=== PATIENT | female | born 1925 ===

== ENCOUNTER 2017-07-14 18:22 | Inpatient (IN) | payer MEDICARE, OTHER ==
--- NOTE | 2017-07-14 19:28 | C.PDOC ---
History Of Present Illness 89yo female, with history of hypertension, pacemaker and home O2, presents to ED with complaints of back pain, worsening over the past 2 days. She denies any falls or trauma. Patient states she took Tylenol yesterday with mild relief and states the pain was so severe today, she was unable to walk. She denies any weakness, numbness, bowel or bladder dysfunction, abdominal pain or urinary symptoms. She denies any loss of strength in her lower extremities. She offers no other medical complaints. Chief Complaint (Nursing): Back Pain History Per: Patient History/Exam Limitations: no limitations Onset/Duration Of Symptoms: Days, Worse Since (2 days) Current Symptoms Are (Timing): Still Present Quality Of Discomfort: "Pain" Severity: Moderate Previous Symptoms: Back Pain Associated Symptoms: denies: Incontinence, New Weakness, New Numbness Past Medical History Reviewed: Historical Data, Nursing Documentation, Vital Signs Vital Signs: Last Vital Signs Temp 98.3 F 07/14/17 23:50 Pulse 73 07/15/17 00:15 Resp 20 07/15/17 00:15 BP 148/89 07/14/17 23:50 Pulse Ox 2 L 07/15/17 00:15 - Medical History PMH: HTN, Hypercholesterolemia Surgical History: Pacemaker Family History: States: No Known Family Hx - Social History Hx Alcohol Use: No Hx Substance Use: No - Immunization History Hx Tetanus Toxoid Vaccination: Yes Hx Pneumococcal Vaccination: No Review Of Systems Except As Marked, All Systems Reviewed And Found Negative. Constitutional: Negative for: Fever, Chills Gastrointestinal: Negative for: Abdominal Pain Genitourinary: Negative for: Dysuria, Frequency, Incontinence, Hematuria Musculoskeletal: Positive for: Back Pain Neurological: Negative for: Weakness, Numbness Physical Exam - Physical Exam Appears: Non-toxic, No Acute Distress Skin: Normal Color, Warm, Dry Head: Atraumatic, Normacephalic Eye(s): bilateral: Normal Inspection, PERRL, EOMI Oral Mucosa: Moist Neck: Normal ROM, Supple Chest: Symmetrical, Other (pacemaker left anterior chest) Cardiovascular: Rhythm Regular Respiratory: Normal Breath Sounds Gastrointestinal/Abdominal: Normal Exam, Soft, No Tenderness Back: No CVA Tenderness, No Vertebral Tenderness, Paraspinal Tenderness ( diffuse bilateral paralumbar tenderness) Extremity: Normal ROM (5/5 motor strength bilateral lower extremities), No Deformity Pulses: Left Carotid: Normal, Right Carotid: Normal, Left Brachial: Normal, Right Brachial: Normal, Left Radial: Normal, Right Radial: Normal, Left Femoral : Normal, Right Femoral: Normal, Left Dorsalis Pedis: Normal, Right Dorsalis Pedis: Normal Neurological/Psych: Oriented x3, Normal Speech, Normal Cognition ED Course And Treatment - Laboratory Results Result Diagrams: 07/14/17 19:44 07/14/17 19:44 Lab Interpretation: Normal O2 Sat by Pulse Oximetry: 98 (RA) Pulse Ox Interpretation: Normal - Other Rad Lumbar spine X-Ray: Interpreted by Me Progress Note: L/S spine films reveal [id number]-judiporibsh fracture Medical Decision Making Medical Decision Making: Impression: Lower back pain Plan: -- XR Lumbar spine -- Urinalysis -- CBC -- CMP -- Morphine 4mg IV Disposition - Disposition Disposition: HOSPITALIZED Disposition Time: 20:46 Condition: FAIR - Clinical Impression Clinical Impression: Lumbar compression fracture - Scribe Statement The provider has reviewed the documentation as recorded by the Scribe (Val Drake) Provider Attestation: Provider Attestation: All medical record entries made by the Scribe were at my direction and personally dictated by me. I have reviewed the chart and agree that the record accurately reflects my personal performance of the history, physical exam, medical decision making, and the department course for this patient. I have also personally directed, reviewed, and agree with the discharge instructions and disposition.
[2017-07-14] MEDS ORDERED: Morphine 4 MG/ML VIAL IV ONE (19:29)
--- NOTE | 2017-07-14 19:30 | C.PDOC ---
Chief Complaint (Nursing): Back Pain Past Medical History Vital Signs: Last Vital Signs Temp 97.9 F 07/14/17 18:40 Pulse 69 07/14/17 18:40 Resp 20 07/14/17 18:40 BP 115/59 L 07/14/17 18:40 Pulse Ox 98 07/14/17 18:40 - Medical History PMH: HTN, Hypercholesterolemia Surgical History: Pacemaker - Social History Hx Alcohol Use: No Hx Substance Use: No - Immunization History Hx Tetanus Toxoid Vaccination: Yes Hx Pneumococcal Vaccination: No ED Course And Treatment O2 Sat by Pulse Oximetry: 98 Disposition - Disposition
[2017-07-14] MEDS ORDERED: Morphine 4 MG/ML VIAL ONE (19:34)
[2017-07-14 19:47] LABS: BASO % 0.4 % (0.0-2.0); EOS # 0.1 K/uL (0.0-0.7); EOS % 1.6 % (0.0-4.0); HEMOGLOBIN 12.2 g/dL (11.0-16.0); LYMPH # 1.5 K/uL (1.0-4.3); LYMPH % 24.5 % (20.0-40.0); MEAN CELL VOLUME 92.2 fL (81.0-99.0); MEAN CORPUSCULAR HEMOGLOBIN 30.7 pg (27.0-31.0); MEAN CORPUSCULAR HGB CONC 33.3 g/dL (33.0-37.0); MEAN PLATELET VOLUME 8.6 fL (7.2-11.7); MONO # 0.7 K/uL (0.0-0.8); NEUT # 3.9 K/uL (1.8-7.0); NEUT % 62.5 % (50.0-75.0); RBC 3.97 Mil/uL (3.80-5.20); RED CELL DISTRIBUTION WIDTH 13.6 % (11.5-14.5); WHITE BLOOD COUNT 6.2 K/uL (4.8-10.8)
[2017-07-14 19:51] LABS: SQUAMOUS EPITHIAL 2 /hpf (0-5); URINE BILIRUBIN NEGATIVE (NEGATIVE); URINE BLOOD NEGATIVE (NEGATIVE); URINE CLARITY Clear (Clear); URINE COLOR Straw (YELLOW); URINE GLUCOSE (UA) NORMAL (Normal); URINE LEUKOCYTE ESTERASE TRACE Leu/uL (Negative); URINE PROTEIN NEGATIVE (NEGATIVE); URINE UROBILINOGEN NORMAL mg/dL (0.2-1.0)
[2017-07-14 20:01] LABS: ALBUMIN 3.4 g/dL (3.5-5.0); ALT/SGPT 90 U/L (9-52); AST/SGOT 69 U/L (14-36); BLOOD UREA NITROGEN 19 mg/dL (7-17); CALCIUM 9.1 mg/dl (8.6-10.4); GFR AFRICAN-AMERICAN > 60; GFR NON-AFRICAN AMERICAN 52
--- NOTE | 2017-07-14 21:25 | CP.PCM.HP ---
History of Present Illness - History of Present Illness History of Present Illness: Chief complaint: Weakness History present illness: 88-year-old female with history of atrial fibrillation, congestive heart failure , hypertension, pacemaker came to ER with pain in the back. Tuesday pt son called me and told me that she started to have more pain and unable to walk even with WRITING TUTOR help and walker. Her pain got more worse and unable to stand today and family brought her to ED. There is no fall or no injury recently. NO recent cough. Pt is very anxious and c/o insomina with pain. She also stopped taking her lasix because she was not able to get up and go to bathroom. Patient recently had echocardiogram, and also evaluated for pacemaker by cnc machine programmer . Some urinary incontinence noted. Patient has a homemaker 4 days per week, 2 hours per day. She sleeping okay, patient is using oxygen almost 24 hours. PMH: COPD, atrial fib, CHF, HTN, pacemaker, osteoporosis, anxiety allergy: NKDA FH: son: anxiety and hypercholesterolemia father and mother natural cause Surgery: Appendectomy, Pacemaker PH: Smoking:Quit greater than 40 years ago ago. 2ppd Alcohol: Alcohol Status: Nondrinker. Caffeine intake:Admits to taking caffeinated beverages. Review of systems: Denies any headache, generalized body pain, lower leg pain noted, sometimes swelling in the legs noted, denies any abdominal swelling c/o pain over the lower back noted and tenderness On examination: HEENT PERRLA, neck supple No thyromegaly was noted and no cervical adenopathy noted Chest bilateral good air entry, no wheezing or rales noted CVS regular heart sound, no murmur Abdomen soft and no organomegaly Extremities pedal edema noted bilateral pedal pulses are good. REGISTERED NURSE HH CASE MANAGER alert awake oriented x3 no functional neurological deficit tenderness over the lower lumbar region noted able to move the lower extremities but weak labs noted T12 vertibral compression fracture noted high INR Assessment/Plan: 89-year-old female with history of congestive heart failure, systolic in nature , stable at this time, on medications as well as home oxygen. Atrial fibrillation on medications. Anticoagulation. Being evaluated by cnc machine programmer. Hypercholesterolemia, COPD, hypertension, pacemaker. admitted with acute vertibral compression fracture with weakness physical theraphy pain managment neuro eval PPI will f/u Present on Admission - Present on Admission Any Indicators Present on Admission: No History of DVT/PE: No History of Uncontrolled Diabetes: No Urinary Catheter: No Decubitus Ulcer Present: No Past Patient History - Past Social History Smoking Status: Never Smoked - CARDIAC Hx Hypercholesterolemia: Yes Hx Hypertension: Yes Hx Pacemaker: Yes - PSYCHIATRIC Hx Substance Use: No - SURGICAL HISTORY Other/Comment: pacemaker Meds Allergies/Adverse Reactions: Allergies Allergy/AdvReac Type Severity Reaction Status Date / Time No Known Allergies Allergy Verified 07/14/17 18:43 Results - Vital Signs Recent Vital Signs: Last Vital Signs Temp 97.9 F 07/14/17 18:40 Pulse 69 07/14/17 18:40 Resp 20 07/14/17 18:40 BP 115/59 L 07/14/17 18:40 Pulse Ox 98 07/14/17 20:46 - Labs Result Diagrams: 07/14/17 19:44 07/14/17 19:44 Labs: Laboratory Results - last 24 hr 07/14/17 07/14/17 07/14/17 19:44 19:44 19:44 WBC 6.2 RBC 3.97 Hgb 12.2 Hct 36.6 MCV 92.2 MCH 30.7 MCHC 33.3 RDW 13.6 Plt Count 274 MPV 8.6 Neut % (Auto) 62.5 Lymph % (Auto) 24.5 Baker % (Auto) 11.0 H Eos % (Auto) 1.6 Baso % (Auto) 0.4 Neut # (Auto) 3.9 Lymph # (Auto) 1.5 Baker # (Auto) 0.7 Eos # (Auto) 0.1 Baso # (Auto) 0.0 Sodium 134 Potassium 4.6 Chloride 98 Carbon Dioxide 26 Anion Gap 15 BUN 19 H Creatinine 1.0 Est GFR ( Amer) > 60 Est GFR (Non-Af Amer) 52 Random Glucose 89 Calcium 9.1 Total Bilirubin 0.8 AST 69 H ALT 90 H Alkaline Phosphatase 303 H Total Protein 6.8 Albumin 3.4 L Globulin 3.5 Albumin/Globulin Ratio 1.0 Urine Color Straw Urine Clarity Clear Urine pH 5.0 Ur Specific [place] 1.008 Urine Protein Negative Urine Glucose (UA) Normal Urine Ketones Negative Urine Blood Negative Urine Nitrate Negative Urine Bilirubin Negative Urine Urobilinogen Normal Ur Leukocyte Esterase Trace Urine WBC (Auto) 5 Urine RBC (Auto) < 1 Ur Squamous Epith Cells 2
[2017-07-14 21:45] LABS: INR 6.4
[2017-07-14 21:50] LABS: PROTHROMBIN TIME 78.7 SECONDS (9.7-12.2)
--- NOTE | 2017-07-15 07:06 | CP.PCM.CON ---
History of Present Illness - History of Present Illness History of Present Illness: CONSULT DICTATED R/O MYELOPATHY FROM T12 NO SENSORY LEVEL, BLADDER NOT DISTENDED LEFT PLANTAR UPGOING CAT THX AND L/S SPINE, BONE SCAN AND BLADDER SONO INR HIGH ??? RETROPERITONEAL BLEED. BED REST Past Patient History - Past Medical History & Family History Past Medical History?: Yes - Past Social History Smoking Status: Former Smoker - CARDIAC Hx Hypercholesterolemia: Yes Hx Hypertension: Yes Hx Pacemaker: Yes - PULMONARY Hx Respiratory Disorders: Yes Hx Chronic Obstructive Pulmonary Disease (COPD): Yes - NEUROLOGICAL Hx Neurological Disorder: No - HEENT Hx HEENT Problems: Yes Hx Cataracts: Yes (Surgery) - RENAL Hx Chronic Kidney Disease: No - ENDOCRINE/METABOLIC Hx Endocrine Disorders: No - HEMATOLOGICAL/ONCOLOGICAL Hx Blood Disorders: No - INTEGUMENTARY Hx Dermatological Problems: No - MUSCULOSKELETAL/RHEUMATOLOGICAL Hx Musculoskeletal Disorders: Yes Hx Falls: No Hx Osteoporosis: Yes - GASTROINTESTINAL Hx Gastrointestinal Disorders: No - GENITOURINARY/GYNECOLOGICAL Hx Genitourinary Disorders: Yes Hx Incontinence: Yes (" I stopped taking Lasix for 2 days now") - PSYCHIATRIC Hx Substance Use: No - SURGICAL HISTORY Hx Surgeries: Yes Hx Appendectomy: Yes Other/Comment: pacemaker - ANESTHESIA Hx Anesthesia: Yes Hx Anesthesia Reactions: No Hx Malignant Hyperthermia: No Has any member of the family had a problem w/ anesthesia?: No Meds Allergies/Adverse Reactions: Allergies Allergy/AdvReac Type Severity Reaction Status Date / Time No Known Allergies Allergy Verified 07/14/17 18:43 - Medications Medications: Current Medications Acetaminophen (Tylenol 325mg Tab) 650 mg PO Q6 PRN PRN Reason: Pain, Mild (1-3) Alprazolam (Xanax) 0.5 mg PO DAILY [facility] Diltiazem HCl (Cardizem Cd) 120 mg PO DAILY [facility] Docusate Sodium (Colace) 100 mg PO TID [facility] Enalapril Maleate (Vasotec) 5 mg PO DAILY [facility] Furosemide (Lasix) 40 mg PO DAILY [facility] Metoprolol Succinate (Toprol Xl) 100 mg PO DAILY [facility] Morphine Sulfate (Morphine) 2 mg IVP Q4 PRN PRN Reason: Pain, severe (8-10) Last Admin: 07/15/17 03:42 Dose: 2 mg Multivitamins/Minerals (Therapeutic-M Tab) 1 tab PO DAILY [facility] Pantoprazole Sodium (Protonix Ec Tab) 40 mg PO DAILY [facility] Pneumococcal Polyvalent Vaccine (Pneumovax 23 Vaccine) 0.5 ml IM .ONCE ONE Stop: 07/17/17 10:01 Rosuvastatin Calcium (Crestor) 5 mg PO HS [facility] Sennosides (Senokot Tab) 8.6 mg PO DAILY [facility] Warfarin Sodium (Coumadin) 4 mg PO DAILY [facility] Results - Vital Signs Recent Vital Signs: Last Vital Signs Temp 98.3 F 07/14/17 23:50 Pulse 73 07/15/17 00:15 Resp 20 07/15/17 00:15 BP 148/89 07/14/17 23:50 Pulse Ox 98 07/15/17 01:44 - Labs Result Diagrams: 07/14/17 19:44 07/14/17 19:44 Labs: Laboratory Results - last 24 hr 07/14/17 07/14/17 07/14/17 19:44 19:44 19:44 WBC 6.2 RBC 3.97 Hgb 12.2 Hct 36.6 MCV 92.2 MCH 30.7 MCHC 33.3 RDW 13.6 Plt Count 274 MPV 8.6 Neut % (Auto) 62.5 Lymph % (Auto) 24.5 [place] % (Auto) 11.0 H Eos % (Auto) 1.6 Baso % (Auto) 0.4 Neut # (Auto) 3.9 Lymph # (Auto) 1.5 [place] # (Auto) 0.7 Eos # (Auto) 0.1 Baso # (Auto) 0.0 PT INR APTT Sodium 134 Potassium 4.6 Chloride 98 Carbon Dioxide 26 Anion Gap 15 BUN 19 H Creatinine 1.0 Est GFR ( Amer) > 60 Est GFR (Non-Af Amer) 52 Random Glucose 89 Calcium 9.1 Total Bilirubin 0.8 AST 69 H ALT 90 H Alkaline Phosphatase 303 H Total Protein 6.8 Albumin 3.4 L Globulin 3.5 Albumin/Globulin Ratio 1.0 Urine Color Straw Urine Clarity Clear Urine pH 5.0 Ur Specific [place] 1.008 Urine Protein Negative Urine Glucose (UA) Normal Urine Ketones Negative Urine Blood Negative Urine Nitrate Negative Urine Bilirubin Negative Urine Urobilinogen Normal Ur Leukocyte Esterase Trace Urine WBC (Auto) 5 Urine RBC (Auto) < 1 Ur Squamous Epith Cells 2 07/14/17 21:27 WBC RBC Hgb Hct MCV MCH MCHC RDW Plt Count MPV Neut % (Auto) Lymph % (Auto) [place] % (Auto) Eos % (Auto) Baso % (Auto) Neut # (Auto) Lymph # (Auto) [place] # (Auto) Eos # (Auto) Baso # (Auto) PT 78.7 H* INR 6.4 APTT 63 H Sodium Potassium Chloride Carbon Dioxide Anion Gap BUN Creatinine Est GFR ( Amer) Est GFR (Non-Af Amer) Random Glucose Calcium Total Bilirubin AST ALT Alkaline Phosphatase Total Protein Albumin Globulin Albumin/Globulin Ratio Urine Color Urine Clarity Urine pH Ur Specific [place] Urine Protein Urine Glucose (UA) Urine Ketones Urine Blood Urine Nitrate Urine Bilirubin Urine Urobilinogen Ur Leukocyte Esterase Urine WBC (Auto) Urine RBC (Auto) Ur Squamous Epith Cells
[2017-07-15 08:37] LABS: BASO # 0.1 K/uL (0.0-0.2); BASO % 0.8 % (0.0-2.0); EOS # 0.1 K/uL (0.0-0.7); EOS % 1.3 % (0.0-4.0); HEMOGLOBIN 11.1 g/dL (11.0-16.0); LYMPH % 32.2 % (20.0-40.0); MEAN CELL VOLUME 92.7 fL (81.0-99.0); MEAN CORPUSCULAR HEMOGLOBIN 31.4 pg (27.0-31.0); MEAN CORPUSCULAR HGB CONC 33.8 g/dL (33.0-37.0); MEAN PLATELET VOLUME 9.4 fL (7.2-11.7); MONO # 0.7 K/uL (0.0-0.8); MONO % 11.2 % (0.0-10.0); NEUT # 3.4 K/uL (1.8-7.0); NEUT % 54.5 % (50.0-75.0); NRBC % 0.1 % (0.0-2.0); RBC 3.54 Mil/uL (3.80-5.20); RED CELL DISTRIBUTION WIDTH 13.8 % (11.5-14.5); WHITE BLOOD COUNT 6.3 K/uL (4.8-10.8)
[2017-07-15 08:50] LABS: INR 4.9; PROTHROMBIN TIME 60.2 SECONDS (9.7-12.2)
--- NOTE | 2017-07-15 09:20 | RAD ---
PROCEDURE: Radiographs of the Lumbar Spine. HISTORY: back pain COMPARISON: No prior. FINDINGS: BONES: Grade 1 anterolisthesis of L5 over S1. Narrowing of the L4-L5 and L5-S1 neural foramen. Age indeterminate compression fracture of T12 vertebral body. DISC SPACES: Disc space narrowing at L5-S1. OTHER FINDINGS: Extensive facet hypertrophy of the lumbar spine. Pars defects not clearly identified. Vascular calcifications. Impression Age indeterminate compression fracture of T12. MRI can be obtained as per clinical indications. Extensive degenerative changes as described above. If symptoms persist, cross-sectional imaging should be obtained.
--- NOTE | 2017-07-15 09:32 | US ---
Pelvic ultrasound TECHNIQUE: Extremely limited ultrasound images of the pelvis concentrating on the bladder were obtained. Findings: Partially filled bladder was imaged. The bladder hook have limited visualization. Left urinary jet was visualized. Right urinary jet was not visualized. Prevoid volume: 448.25 cc. According to the technologist note: The patient unable to void. No bladder calculi identified. Bilateral adnexa were imaged. The ovaries were not visualized. Impression: Limited visualization of the urinary bladder. Patient was unable to void. No significant wall thickening or calculi identified. Other findings as above.
[2017-07-15] MEDS ORDERED: Pantoprazole 40 mg EC Tab PO SCH (10:00)
--- NOTE | 2017-07-15 10:05 | CT ---
PROCEDURE: CT Thoracic Spine without contrast HISTORY: Cord compression COMPARISON: None. TECHNIQUE: Axial computed tomography images were obtained of the thoracic spine without intravenous contrast. Coronal and sagittal reformatted images were created and reviewed. Radiation dose: Total exam DLP = 840.97 mGy-cm. This CT exam was performed using one or more of the following dose reduction techniques: Automated exposure control, adjustment of the mA and/or kV according to patient size, and/or use of iterative reconstruction technique. FINDINGS: VERTEBRAE: There is normal alignment of the thoracic vertebral bodies. There is mild exaggeration of thoracic kyphosis. There is diffuse bone demineralization. There are age indeterminate osteoporotic compression fracture deformities in the T12 and T5 vertebral bodies. There is mild retropulsion of the posterior superior fragment at T12 which indents the ventral thecal sac without significant canal stenosis. DISCS/SPINAL CANAL/NEURAL FORAMINA: Please note evaluation of the discs and spinal cord is very limited on noncontrast CT examination. Allowing for this, no large disc herniation, neural foraminal or spinal canal stenosis. PARASPINAL SOFT TISSUES: The paraspinous soft tissues are normal.. OTHER FINDINGS: There are simple cortical cysts in the visualized kidneys. IMPRESSION: Age indeterminate osteoporotic compression fracture deformities in the T12 and T5 vertebral bodies. Mild retropulsion of the posterior superior fracture fragment at T12 without significant spinal canal stenosis. Evaluation of the spinal cord and discs is extremely limited on noncontrast CT examination. Allowing for this no evidence for large disc herniation or spinal canal stenosis.
--- NOTE | 2017-07-15 10:07 | CARD ---
APPROVED REPORT EKG Measurement Heart [id number] <Conclusion> Atrial fibrillation with a competing junctional pacemaker Left anterior fascicular block Cannot rule out Anterior infarct, age undetermined Abnormal ECG
[2017-07-15] MEDS: diltiaZEM 120 mg/24 Hours CD Cap PO SCH (10:10)
[2017-07-15] MEDS: Metoprolol Succinate 100 mg XL Tab PO SCH (10:10)
[2017-07-15] MEDS: Multivitamin With Minerals Tab PO SCH (10:10)
--- NOTE | 2017-07-15 10:39 | CT ---
PROCEDURE: CT Lumbar Spine without contrast HISTORY: Spinal canal stone COMPARISON: Plain radiographs from 07/14/2017 TECHNIQUE: Axial computed tomography images were obtained of the lumbar spine without the use of intravenous contrast. Coronal and sagittal reformatted images were created and reviewed. Radiation dose: Total exam DLP = 1186.58 MGy-cm. This CT exam was performed using one or more of the following dose reduction techniques: Automated exposure control, adjustment of the mA and/or kV according to patient size, and/or use of iterative reconstruction technique. FINDINGS: VERTEBRAE: There is left pars interarticularis defect at L5 with grade 1 anterior listhesis of L5 on S1. There is degenerative grade 1 anterior listhesis of L4 on L5. There is diffuse bone demineralization. There is no acute fracture or spondylolysis. DISCS/SPINAL CANAL/NEURAL FORAMINA: Evaluation of the discs and nerve roots of cauda equina is limited on noncontrast CT examination. Allowing for this there is desiccation of the L4-5 disc. L1-2: No large disc herniation, neural foraminal or spinal canal stenosis. L2-3: Diffuse posterior disc bulge indents the ventral thecal sac without spinal canal stenosis. No neural foraminal narrowing. L3-4: Diffuse posterior disc bulge without central spinal canal stenosis. Also noted is superimposed large right posterolateral and foraminal disc herniations which abut the exiting right L3 nerve root. Mild bilateral facet arthropathy contribute to moderate right neural foraminal narrowing. L4-5: Diffuse posterior disc bulge indents the ventral thecal sac without central spinal canal stenosis. Severe bilateral facet arthropathy contribute to severe neural foraminal narrowing. L5-S1: Diffuse posterior disc bulge indents the ventral thecal sac without central spinal canal stenosis. Moderate bilateral facet arthropathy contribute to moderate to severe neural foraminal narrowing. PARASPINAL SOFT TISSUES: Unremarkable. OTHER FINDINGS: There is extensive sigmoid diverticulosis without CT evidence for acute diverticulitis. IMPRESSION: 1. No acute fracture. 2. Left pars interarticularis defect at L 5 with grade 1 anterior listhesis of L5 on S1. Also noted is diffuse posterior disc bulge and [id number] neural foraminal narrowing at L5-S1 without significant central spinal canal stenosis. 3. Multilevel degenerative disc disease, worse at L3-4 with a diffuse posterior disc bulge and superimposed right foraminal and far lateral disc protrusions which abut the exiting right L3 nerve root. Also noted is moderate right neural foraminal narrowing, no significant central spinal canal stenosis
--- NOTE | 2017-07-15 11:03 | CON ---
DATE: 07/15/2017 TIME OF EVALUATION: 6:55 a.m. REASON FOR CONSULTATION: Lower back pain. CHIEF COMPLAINT: The patient was brought into as per the advice of her primary care physician because of her progressive back pain. From neurological point of view, I was called in to see her and evaluate her for further management due to her abnormal x-rays and severe lower back pain. HISTORY OF PRESENT ILLNESS: Ms. Martha Crawley is an 89-year-old right-handed female, recently started to have back pain using her walker, prior to that, she was not using the walker, associating with no radicular pain and no history of bowel or bladder incontinence. She claims that back pain has been increasing slowly which is not radicular in nature. No history of fall. No history of cough. No history of recent travel. No history of any invasive procedures on her back. No history of headache. No history of visual or bulbar dysfunction. Denies neck pain. No similar episodes happened in the past. PAST MEDICAL HISTORY: Atrial fibrillation, congestive heart failure, hypertension, and pacemaker. PAST SURGICAL HISTORY: Pacemaker and appendectomy in the past. PERSONAL HISTORY: Denies smoking or alcohol use. ALLERGIES: NO KNOWN ALLERGIES. REVIEW OF SYSTEM: Twelve-point system being reviewed. From neuro, new lower back pain. MEDICATIONS: Diltiazem, Colace, Coumadin, Crestor, Lasix, morphine, Protonix, Senokot, vitamin, Tylenol, alprazolam. PHYSICAL EXAMINATION: VITAL SIGNS: Blood pressure 148/89, mean artery pressure of 108, respiratory rate 16, temperature afebrile, pulse rate 73 and regular. NECK: Supple. No carotid bruits. HEART: Sounds regular. EXTREMITIES: Not . Right leg seems to be externally rotated. ABDOMEN: Soft. No distended bladder. SPINE: Examination of spine, diffuse tenderness but particular tenderness over her lumbosacral region to compare with the other area. NEUROLOGIC EXAMINATION: The patient is arousable on calling her first name. She knows she is in the hospital. She knows what the reason she was brought into the hospital. She knows the year. Speech is fluent. Cranial nerve examination: Visual field intact. Pupils reactive. Extraocular movement normal. No nystagmus. No facial sensory deficit. No facial asymmetry. Hearing is normal. Tongue is midline. Good gag. Motor examination: Outstretched hand with eyes closed. She could able to lift both upper extremities against the gravity. Mild sensory tremor noted. Lower extremities: She had pain limited exam of lifting her legs off the bed. However, she could able to bend her knee and hip. Plantarflexion and dorsiflexion voluntarily, she could do it. Deep tendon reflexes absent throughout. Plantars are upgoing on the left side, right side was equivocal response. Sensory examination: Position sense intact. No sensory level. Coordination: He is trying to do [id number] testing for her best. LABORATORY DATA: X-ray had been reviewed, seems to be a compression fracture at T12. Blood workup: WBC 6.2, hemoglobin 12.2, hematocrit 36.6, platelets 274. PT 78.7, INR 6.4, PTT 63. Sodium 134, potassium 4.6, chloride 98, bicarbonate 26, BUN 19, creatinine 1.0, GFR more than 60, calcium 9.1, bilirubin 0.8, AST 69, ALT 90, alkaline phosphatase 303, albumin 3.4. Urinalysis grossly intact. CONCLUSION: Ms. Martha Crawley as per my neurological examination, significant lower back pain. On neurologic examination, the patient does not have a sensory level and left plantars are upgoing without any bladder distention. The current examination does not significantly say that she does have cord compression. However, considering her age and the clinical presentation of her progression, myelopathy should be ruled out. The patient also taking Coumadin with INR more than 6 raise the possibility of internal bleeding, retroperitoneal bleed should be ruled out. RECOMMENDATIONS: 1. CT of the thoracic spine and lumbosacral spine is requested to rule out any bony pathology. 2. Immune protein electrophoresis, urine protein electrophoresis with the fixation, and repeat CBC with the other workup as requested. 3. Bladder sonogram, bone scan should be done to rule out local pathology can explain. The patient should be in the bed and keep her sequential MADIE stockings to prevent deep vein thrombosis. The patient condition will be discussed with the attending physician. The patient will be followed closely while she is in the hospital. Ezekiel Erwin MD
[2017-07-15] MEDS ORDERED: Dextrose 5%/0.9% NS 1,000 ML IV ONE (14:55)
[2017-07-15] MEDS: Lidocaine 5% Patch TD SCH (15:07)
--- NOTE | 2017-07-15 15:50 | RAD ---
PROCEDURE: CHEST RADIOGRAPH, 1 VIEW HISTORY: r/o aspiration COMPARISON: 12/01/2012 FINDINGS: LUNGS: Left basilar opacity which could represent a small effusion and/or atelectasis. PLEURA: Biapical pleural parenchymal thickening noted. No significant effusion on the right. CARDIOVASCULAR: Enlarged heart. OSSEOUS STRUCTURES: The osseous structures demonstrate degenerative changes. VISUALIZED UPPER ABDOMEN: Upper abdomen is suboptimally evaluated. OTHER FINDINGS: None. IMPRESSION: Atelectasis and/or effusion on the left.
--- NOTE | 2017-07-15 16:14 | NM ---
PROCEDURE: Whole Body Bone Scan HISTORY: METS VS PRIMARY DISEASE COMPARISON: 12/15/2017 CT lumbar spine and thoracic spine TECHNIQUE: Following administration of 24.6 miCu of Tc MDP multiplanar whole body images were obtained. FINDINGS: Evidence for bony metastatic disease: Indeterminate although suspicious findings identified in the right kash sacrum. A correlate appears to be a an infiltrative pattern to the sacrum, asymmetric compared to are relatively normal in osteopenic left side.Indeterminate findings in antro lateral right 9th rib. Degenerative uptake: Thoracolumbar spine associated with scoliosis. Bilateral knees and ankles. Physiologic uptake: Normal physiologic activity in the kidneys. Other findings: None. IMPRESSION: Suspicious findings right kash sacrum. Indeterminate findings anterolateral right 9th rib.
--- NOTE | 2017-07-15 16:58 | RAD ---
HISTORY: vomiting , r/o obstruction COMPARISON: Of FINDINGS: BOWEL: Normal. No obstruction. No free air. BONES: Normal. OTHER FINDINGS: None. IMPRESSION: No active disease.
[2017-07-15 20:27] LABS: BASO % 0.5 % (0.0-2.0); EOS % 0.4 % (0.0-4.0); HEMOGLOBIN 8.7 g/dL (11.0-16.0); LYMPH # 1.6 K/uL (1.0-4.3); LYMPH % 23.4 % (20.0-40.0); MEAN CELL VOLUME 92.8 fL (81.0-99.0); MEAN CORPUSCULAR HEMOGLOBIN 31.5 pg (27.0-31.0); MEAN CORPUSCULAR HGB CONC 33.9 g/dL (33.0-37.0); MEAN PLATELET VOLUME 9.1 fL (7.2-11.7); MONO # 0.5 K/uL (0.0-0.8); MONO % 7.1 % (0.0-10.0); NEUT # 4.6 K/uL (1.8-7.0); NEUT % 68.6 % (50.0-75.0); RBC 2.77 Mil/uL (3.80-5.20); RED CELL DISTRIBUTION WIDTH 14.2 % (11.5-14.5); WHITE BLOOD COUNT 6.7 K/uL (4.8-10.8)
[2017-07-16] MEDS ORDERED: Phytonadione 10 mg/ml Inj (Adult) SC STA ×3 (00:14→22:53)
[2017-07-16] MEDS: Lidocaine 5% Patch TD SCH (09:28)
[2017-07-16] MEDS: Metoprolol Succinate 100 mg XL Tab PO SCH (09:29)
[2017-07-16] MEDS: diltiaZEM 120 mg/24 Hours CD Cap PO SCH (09:29)
[2017-07-16] MEDS: Multivitamin With Minerals Tab PO SCH (09:32)
--- NOTE | 2017-07-16 09:50 | CP.PCM.CON ---
History of Present Illness - History of Present Illness History of Present Illness: 89 yo female with h/o COPD, Afib-coumadin, HTN, CHF, PPM- admitted for back pain and vertebral fracture. I was called to see pt for GI bleed. HAd coffee ground emesis and episodes of melena. Had 3 episodes of melena over night. Denies PUD, EGD or colonosocpy in past. Denies abd pain, fever, SZ Son is present Review of Systems - Constitutional Constitutional: Anorexia, Fatigue, Weakness. absent: Chills, Fever, Headache, Weight Gain - EENT Eyes: absent: Photophobia Nose/Mouth/Throat: absent: Dysphagia - Cardiovascular Cardiovascular: absent: Diaphoresis - Respiratory Respiratory: absent: Hemoptysis, Wheezing - Gastrointestinal Gastrointestinal: Coffee Ground Emesis, Hematemesis, Melena, Nausea, Vomiting. absent: Abdominal Pain, Bloating, Constipation, Diarrhea, Dysphagia - Genitourinary Genitourinary: absent: Flank Pain - Musculoskeletal Musculoskeletal: Back Pain. absent: Muscle Cramps - Integumentary Integumentary: absent: Jaundice - Neurological Neurological: absent: Convulsions Past Patient History - Past Medical History & Family History Past Medical History?: Yes - Past Social History Smoking Status: Former Smoker - CARDIAC Hx Hypercholesterolemia: Yes Hx Hypertension: Yes Hx Pacemaker: Yes - PULMONARY Hx Respiratory Disorders: Yes Hx Chronic Obstructive Pulmonary Disease (COPD): Yes - NEUROLOGICAL Hx Neurological Disorder: No - HEENT Hx HEENT Problems: Yes Hx Cataracts: Yes (Surgery) - RENAL Hx Chronic Kidney Disease: No - ENDOCRINE/METABOLIC Hx Endocrine Disorders: No - HEMATOLOGICAL/ONCOLOGICAL Hx Blood Disorders: No - INTEGUMENTARY Hx Dermatological Problems: No - MUSCULOSKELETAL/RHEUMATOLOGICAL Hx Musculoskeletal Disorders: Yes Hx Falls: No Hx Osteoporosis: Yes - GASTROINTESTINAL Hx Gastrointestinal Disorders: No - GENITOURINARY/GYNECOLOGICAL Hx Genitourinary Disorders: Yes Hx Incontinence: Yes (" I stopped taking Lasix for 2 days now") - PSYCHIATRIC Hx Substance Use: No - SURGICAL HISTORY Hx Surgeries: Yes Hx Appendectomy: Yes Other/Comment: pacemaker - ANESTHESIA Hx Anesthesia: Yes Hx Anesthesia Reactions: No Hx Malignant Hyperthermia: No Has any member of the family had a problem w/ anesthesia?: No Meds Allergies/Adverse Reactions: Allergies Allergy/AdvReac Type Severity Reaction Status Date / Time No Known Allergies Allergy Verified 07/14/17 18:43 - Medications Medications: Current Medications Acetaminophen (Tylenol 325mg Tab) 650 mg PO Q6 PRN PRN Reason: Pain, Mild (1-3) Diltiazem HCl (Cardizem Cd) 120 mg PO DAILY [facility] Last Admin: 07/16/17 09:29 Dose: 120 mg Docusate Sodium (Colace) 100 mg PO TID [facility] Last Admin: 07/16/17 09:30 Dose: Not Given Lidocaine (Lidoderm) 1 ea TD DAILY [facility] Last Admin: 07/16/17 09:28 Dose: 1 ea Metoprolol Succinate (Toprol Xl) 100 mg PO DAILY [facility] Last Admin: 07/16/17 09:29 Dose: 100 mg Multivitamins/Minerals (Therapeutic-M Tab) 1 tab PO DAILY [facility] Last Admin: 07/16/17 09:32 Dose: 1 tab Ondansetron HCl (Zofran Inj) 4 mg IVP Q6 PRN PRN Reason: Nausea/Vomiting Pantoprazole Sodium (Protonix Inj) 40 mg IVP Q12H [facility] Last Admin: 07/16/17 09:29 Dose: 40 mg Pneumococcal Polyvalent Vaccine (Pneumovax 23 Vaccine) 0.5 ml IM .ONCE ONE Stop: 07/17/17 10:01 Rosuvastatin Calcium (Crestor) 5 mg PO HS [facility] Last Admin: 07/15/17 22:03 Dose: Not Given Sennosides (Senokot Tab) 8.6 mg PO DAILY [facility] Last Admin: 07/16/17 09:30 Dose: Not Given Physical Exam - Constitutional Appears: Non-toxic - Neck Exam Neck exam: Negative for: Tenderness - Respiratory Exam Respiratory Exam: Clear to Auscultation Bilateral - Cardiovascular Exam Cardiovascular Exam: Irregular Rhythm - GI/Abdominal Exam GI & Abdominal Exam: Normal Bowel Sounds, Soft. absent: Distended, Guarding, Mass, Rebound, Rigid, Tenderness - Extremities Exam Extremities exam: Negative for: calf tenderness - Neurological Exam Neurological exam: Alert Results - Vital Signs Recent Vital Signs: Last Vital Signs Temp 97.5 F L 07/16/17 05:55 Pulse 103 H 07/16/17 08:17 Resp 21 07/16/17 08:17 BP 122/50 L 07/16/17 08:17 Pulse Ox 100 07/16/17 06:02 - Labs Result Diagrams: 07/15/17 20:05 07/14/17 19:44 Labs: Laboratory Results - last 24 hr 07/15/17 07/15/17 07/15/17 08:22 20:05 23:57 WBC 6.7 RBC 2.77 L Hgb 8.7 L D Hct 25.7 L MCV 92.8 MCH 31.5 H MCHC 33.9 RDW 14.2 Plt Count 268 MPV 9.1 Neut % (Auto) 68.6 Lymph % (Auto) 23.4 Nash % (Auto) 7.1 Eos % (Auto) 0.4 Baso % (Auto) 0.5 Neut # (Auto) 4.6 Lymph # (Auto) 1.6 Nash # (Auto) 0.5 Eos # (Auto) 0.0 Baso # (Auto) 0.0 ESR 60 H Blood Type A POSITIVE Antibody Screen Negative Assessment & Plan (1) GI bleed Assessment and Plan: Likely mucosal oozing and coumadin toxicity. Consider PUD. Bleeding has lessened. Received 1 u PRBC and FFP. REC: Protonix, NPO except meds, FFP, vitamin K, transfuse as needed. Long discussion with son and Dr Sahu. Son wants to avoid EGD. Will see if bleeding decreases with improving INR. Other questions: Does coumadin need to be continued for this 89 yo with A Fib? Status: Acute (2) Hypertension Status: Acute (3) COPD (chronic obstructive pulmonary disease) Status: Acute (4) Atrial fibrillation Status: Acute (5) Pacemaker Status: Acute (6) Lumbar compression fracture Status: Acute (7) Coumadin toxicity Status: Acute
[2017-07-16] MEDS: Pantoprazole 80 MG in Sodium Chloride 0.9% 100 ML IVPB SCH ×2 (10:21→20:45)
[2017-07-16 10:25] LABS: BASO % 0.4 % (0.0-2.0); EOS % 0.4 % (0.0-4.0); LYMPH # 1.6 K/uL (1.0-4.3); MEAN CELL VOLUME 91.4 fL (81.0-99.0); MEAN CORPUSCULAR HEMOGLOBIN 32.1 pg (27.0-31.0); MEAN CORPUSCULAR HGB CONC 35.1 g/dL (33.0-37.0); MEAN PLATELET VOLUME 8.8 fL (7.2-11.7); MONO # 0.6 K/uL (0.0-0.8); NEUT # 6.2 K/uL (1.8-7.0); NEUT % 73.2 % (50.0-75.0); RBC 2.5 Mil/uL (3.80-5.20); RED CELL DISTRIBUTION WIDTH 14.2 % (11.5-14.5); WHITE BLOOD COUNT 8.5 K/uL (4.8-10.8)
[2017-07-16] MEDS ORDERED: Etomidate 20 mg/10ml Inj IV ONE (11:50)
[2017-07-16] MEDS ORDERED: Phenylephrine 10 mg/ml Inj ONE (11:51)
[2017-07-16 17:43] LABS: BASO % 0.5 % (0.0-2.0); EOS # 0.1 K/uL (0.0-0.7); EOS % 1.1 % (0.0-4.0); HEMOGLOBIN 9.4 g/dL (11.0-16.0); LYMPH % 22.9 % (20.0-40.0); MEAN CELL VOLUME 90.7 fL (81.0-99.0); MEAN CORPUSCULAR HEMOGLOBIN 31.2 pg (27.0-31.0); MEAN CORPUSCULAR HGB CONC 34.4 g/dL (33.0-37.0); MEAN PLATELET VOLUME 9.1 fL (7.2-11.7); MONO # 0.8 K/uL (0.0-0.8); MONO % 9.3 % (0.0-10.0); NEUT # 5.7 K/uL (1.8-7.0); NEUT % 66.2 % (50.0-75.0); NRBC % 0.1 % (0.0-2.0); RED CELL DISTRIBUTION WIDTH 14.3 % (11.5-14.5); WHITE BLOOD COUNT 8.7 K/uL (4.8-10.8)
--- NOTE | 2017-07-16 18:15 | CP.PCM.PN ---
Subjective - Date & Time of Evaluation Date of Evaluation: 07/16/17 Time of Evaluation: 18:15 - Subjective Subjective: patient is receiving blood transfusion. Underwent upper endoscopy Clinically stable. We will continue to monitor Patient will need a transfusion, includingplasma, PRBC. Protonix. Monitor the CBC, CMP, PT/PTT Will follow patient Spoke to the family Objective - Vital Signs/Intake and Output Vital Signs (last 24 hours): Temp Pulse Resp BP Pulse Ox 97.8 F 85 34 H 124/55 L 96 07/16/17 16:00 07/16/17 18:00 07/16/17 18:00 07/16/17 18:00 07/16/17 18:00 Intake and Output: 07/16/17 07/16/17 06:59 18:59 Intake Total 1050 1000 Output Total 436 900 Balance 614 100 - Medications Medications: Current Medications Acetaminophen (Tylenol 325mg Tab) 650 mg PO Q6 PRN PRN Reason: Pain, Mild (1-3) Diltiazem HCl (Cardizem Cd) 120 mg PO DAILY [facility] Last Admin: 07/16/17 09:29 Dose: 120 mg Pantoprazole Sodium 80 mg/ (Sodium Chloride) 100 mls @ 10 mls/hr IVPB .Q10H [facility] PRN Reason: 8 MG/HR Last Admin: 07/16/17 10:21 Dose: 10 mls/hr Lidocaine (Lidoderm) 1 ea TD DAILY [facility] Last Admin: 07/16/17 09:28 Dose: 1 ea Metoprolol Succinate (Toprol Xl) 100 mg PO DAILY [facility] Last Admin: 07/16/17 09:29 Dose: 100 mg Multivitamins/Minerals (Therapeutic-M Tab) 1 tab PO DAILY [facility] Last Admin: 07/16/17 09:32 Dose: 1 tab Ondansetron HCl (Zofran Inj) 4 mg IVP Q6 PRN PRN Reason: Nausea/Vomiting Pneumococcal Polyvalent Vaccine (Pneumovax 23 Vaccine) 0.5 ml IM .ONCE ONE Stop: 07/17/17 10:01 Rosuvastatin Calcium (Crestor) 5 mg PO HS [facility] Last Admin: 07/15/17 22:03 Dose: Not Given - Labs Labs: 07/16/17 17:40 07/14/17 19:44 PT 60.2 SECONDS (9.7-12.2) H* D 07/15/17 08:22 INR 4.9 D 07/15/17 08:22 APTT 59 SECONDS (21-34) H 07/15/17 08:22
--- NOTE | 2017-07-16 18:15 | CP.PCM.PN ---
Subjective - Date & Time of Evaluation Date of Evaluation: 07/15/17 Time of Evaluation: 18:14 - Subjective Subjective: Patient was doing okay, certainly she become more shortness of breath, and also started having some vomiting. Noted to have upper GI bleed also. Later he started having more rectal bleeding. Patient was transferred to the intensive care unit. Closely monitored. Spoke to the patient's family Objective - Vital Signs/Intake and Output Vital Signs (last 24 hours): Temp Pulse Resp BP Pulse Ox 97.8 F 85 34 H 124/55 L 96 07/16/17 16:00 07/16/17 18:00 07/16/17 18:00 07/16/17 18:00 07/16/17 18:00 Intake and Output: 07/16/17 07/16/17 06:59 18:59 Intake Total 1050 1000 Output Total 436 900 Balance 614 100 - Medications Medications: Current Medications Acetaminophen (Tylenol 325mg Tab) 650 mg PO Q6 PRN PRN Reason: Pain, Mild (1-3) Diltiazem HCl (Cardizem Cd) 120 mg PO DAILY [facility] Last Admin: 07/16/17 09:29 Dose: 120 mg Pantoprazole Sodium 80 mg/ (Sodium Chloride) 100 mls @ 10 mls/hr IVPB .Q10H [facility] PRN Reason: 8 MG/HR Last Admin: 07/16/17 10:21 Dose: 10 mls/hr Lidocaine (Lidoderm) 1 ea TD DAILY [facility] Last Admin: 07/16/17 09:28 Dose: 1 ea Metoprolol Succinate (Toprol Xl) 100 mg PO DAILY [facility] Last Admin: 07/16/17 09:29 Dose: 100 mg Multivitamins/Minerals (Therapeutic-M Tab) 1 tab PO DAILY [facility] Last Admin: 07/16/17 09:32 Dose: 1 tab Ondansetron HCl (Zofran Inj) 4 mg IVP Q6 PRN PRN Reason: Nausea/Vomiting Pneumococcal Polyvalent Vaccine (Pneumovax 23 Vaccine) 0.5 ml IM .ONCE ONE Stop: 07/17/17 10:01 Rosuvastatin Calcium (Crestor) 5 mg PO HS [facility] Last Admin: 07/15/17 22:03 Dose: Not Given - Labs Labs: 07/16/17 17:40 07/14/17 19:44 PT 60.2 SECONDS (9.7-12.2) H* D 07/15/17 08:22 INR 4.9 D 07/15/17 08:22 APTT 59 SECONDS (21-34) H 07/15/17 08:22
[2017-07-16 20:57] LABS: BASO % 0.5 % (0.0-2.0); EOS # 0.1 K/uL (0.0-0.7); EOS % 1.2 % (0.0-4.0); HEMOGLOBIN 8.9 g/dL (11.0-16.0); LYMPH # 1.8 K/uL (1.0-4.3); LYMPH % 20.8 % (20.0-40.0); MEAN CELL VOLUME 90.7 fL (81.0-99.0); MEAN CORPUSCULAR HEMOGLOBIN 31.2 pg (27.0-31.0); MEAN CORPUSCULAR HGB CONC 34.3 g/dL (33.0-37.0); MEAN PLATELET VOLUME 8.1 fL (7.2-11.7); MONO # 0.7 K/uL (0.0-0.8); MONO % 8.7 % (0.0-10.0); NEUT # 5.8 K/uL (1.8-7.0); NEUT % 68.8 % (50.0-75.0); RBC 2.85 Mil/uL (3.80-5.20); RED CELL DISTRIBUTION WIDTH 14.1 % (11.5-14.5); WHITE BLOOD COUNT 8.5 K/uL (4.8-10.8)
[2017-07-16 21:05] LABS: INR 2.1; PROTHROMBIN TIME 23.7 SECONDS (9.7-12.2)
[2017-07-16 21:12] LABS: ALBUMIN 2.8 g/dL (3.5-5.0); ALT/SGPT 56 U/L (9-52); AST/SGOT 29 U/L (14-36); BLOOD UREA NITROGEN 42 mg/dL (7-17); CALCIUM 8.8 mg/dl (8.6-10.4); GFR AFRICAN-AMERICAN > 60; GFR NON-AFRICAN AMERICAN 52
--- NOTE | 2017-07-17 05:49 | CON ---
DATE: HISTORY OF PRESENT ILLNESS: I was asked to see the patient because of atrial fibrillation, anemia. The patient is a woman with history of hypertension, atrial fibrillation, lyla-tachy syndrome, status post pacemaker implant, diastolic heart failure, who was on anticoagulation with Coumadin. The patient has not been feeling well for the last few days. She has not been eating well. The patient comes in because of back discomfort as well as inability to eat. The patient while in the hospital was noted to have an INR of 6 and vomited coffee-ground. The patient was transfused 2 units of blood. FFP was given and vitamin K was also given. The patient at this time feels comfortable. Denies any chest pain or shortness of breath. PAST MEDICAL HISTORY: Significant for hypertension, diastolic heart failure, atrial fibrillation, pacemaker implantation. PERSONAL HISTORY: The patient does not smoke. REVIEW OF SYSTEMS: As above. The patient has back pain in addition. All other systems are negative. FAMILY HISTORY: Noncontributory. PHYSICAL EXAMINATION VITAL SIGNS: Blood pressure is 124/55, pulse rate is 70, respiratory rate is 18. NECK: No jugular venous distention. LUNGS: Clinically clear. HEART: S1 and S2 ejection systolic murmur. ABDOMEN: Soft. No organomegaly or tenderness. EXTREMITIES: 1+ edema of the legs. NEUROLOGIC: Extraocular movements are normal. Affect is normal. Mild pallor is noted. LABORATORY DATA: Hemoglobin currently is 9.4, on admission INR was 6. ASSESSMENT AND PLAN: At this time, we will continue beta-mago and calcium channel blockers for rate control. The patient is hemodynamically stable. Obviously, anticoagulation will be reversed. The patient will get a GI workup. Based on that, further recommendations regarding warfarin can be made. Edvin Castle MD
[2017-07-17 06:42] LABS: BASO % 0.4 % (0.0-2.0); EOS # 0.2 K/uL (0.0-0.7); HEMOGLOBIN 7.7 g/dL (11.0-16.0); LYMPH # 1.8 K/uL (1.0-4.3); MEAN CELL VOLUME 92.1 fL (81.0-99.0); MEAN CORPUSCULAR HEMOGLOBIN 31.8 pg (27.0-31.0); MEAN CORPUSCULAR HGB CONC 34.5 g/dL (33.0-37.0); MEAN PLATELET VOLUME 8.9 fL (7.2-11.7); MONO # 0.7 K/uL (0.0-0.8); MONO % 8.9 % (0.0-10.0); NEUT % 65.7 % (50.0-75.0); RBC 2.43 Mil/uL (3.80-5.20); RED CELL DISTRIBUTION WIDTH 14.2 % (11.5-14.5); WHITE BLOOD COUNT 7.7 K/uL (4.8-10.8)
[2017-07-17 06:44] LABS: INR 1.4; PROTHROMBIN TIME 16.3 SECONDS (9.7-12.2)
[2017-07-17] MEDS: Pantoprazole 80 MG in Sodium Chloride 0.9% 100 ML IVPB SCH ×2 (06:52→18:29)
[2017-07-17 06:56] LABS: ALBUMIN 2.8 g/dL (3.5-5.0); ALT/SGPT 52 U/L (9-52); AST/SGOT 30 U/L (14-36); BLOOD UREA NITROGEN 35 mg/dL (7-17); CALCIUM 8.8 mg/dl (8.6-10.4); GFR AFRICAN-AMERICAN > 60; GFR NON-AFRICAN AMERICAN 59
[2017-07-17] MEDS ORDERED: Influenza Vaccine 60 mcg/0.5 mL SYR (4YR UP) IM ONE (10:00)
[2017-07-17] MEDS ORDERED: Pneumococcal 23-Valent Vaccine IM ONE (10:00)
[2017-07-17] MEDS: Lidocaine 5% Patch TD SCH (10:53)
[2017-07-17] MEDS: Multivitamin With Minerals Tab PO SCH (10:53)
--- NOTE | 2017-07-17 12:15 | CP.PCM.PN ---
Subjective - Date & Time of Evaluation Date of Evaluation: 07/17/17 Time of Evaluation: 11:50 - Subjective Subjective: F/U for GI bleed. Pt and Rn reports no further bleeding. REceived FFp. HB dropped to 7.7. Son is present. Denies CP, SOB, fever, chills, LOPEZ, cough, hematuria, dysuria, hemoptysis, dysphagia, SZ, tremor, myalgia Objective - Vital Signs/Intake and Output Vital Signs (last 24 hours): Temp Pulse Resp BP Pulse Ox 98.1 F 73 22 109/55 L 96 07/17/17 11:44 07/17/17 11:45 07/17/17 11:45 07/17/17 11:45 07/17/17 11:45 Intake and Output: 07/17/17 07/17/17 06:59 18:59 Intake Total 760 150 Output Total 560 155 Balance 200 -5 - Medications Medications: Current Medications Acetaminophen (Tylenol 325mg Tab) 650 mg PO Q6 PRN PRN Reason: Pain, Mild (1-3) Diltiazem HCl (Cardizem Cd) 120 mg PO DAILY [facility] Last Admin: 07/16/17 09:29 Dose: 120 mg Pantoprazole Sodium 80 mg/ (Sodium Chloride) 100 mls @ 10 mls/hr IVPB .Q10H [facility] PRN Reason: 8 MG/HR Last Admin: 07/17/17 06:52 Dose: 10 mls/hr Lidocaine (Lidoderm) 1 ea TD DAILY [facility] Last Admin: 07/17/17 10:53 Dose: 1 ea Metoprolol Succinate (Toprol Xl) 100 mg PO DAILY [facility] Last Admin: 07/16/17 09:29 Dose: 100 mg Multivitamins/Minerals (Therapeutic-M Tab) 1 tab PO DAILY [facility] Last Admin: 07/17/17 10:53 Dose: 1 tab Ondansetron HCl (Zofran Inj) 4 mg IVP Q6 PRN PRN Reason: Nausea/Vomiting Rosuvastatin Calcium (Crestor) 5 mg PO HS [facility] Last Admin: 07/16/17 22:59 Dose: 5 mg - Labs Labs: 07/17/17 06:32 07/17/17 06:31 PT 16.3 SECONDS (9.7-12.2) H D 07/17/17 06:32 INR 1.4 D 07/17/17 06:32 APTT 30 SECONDS (21-34) 07/17/17 06:32 - Constitutional Appears: Non-toxic - Neck Exam Neck Exam: absent: Tenderness - Respiratory Exam Respiratory Exam: Clear to Ausculation Bilateral - Cardiovascular Exam Cardiovascular Exam: RRR - GI/Abdominal Exam GI & Abdominal Exam: Soft, Normal Bowel Sounds. absent: Guarding, Rigid, Tenderness, Mass, Rebound - Extremities Exam Extremities Exam: absent: Calf Tenderness - Neurological Exam Neurological Exam: Alert, Awake Assessment and Plan (1) GI bleed Assessment & Plan: Likely mucosal oozing from coumadin tox. No ulcer at EGD. No blood seen. Bleeding stopped with improved INR. Rec: Protonix- can change to BID Check Hb. Coumadin- does it need to be re-started? Would not consider colonoscopy unless bleeding persists. Status: Acute (2) Hypertension Status: Acute (3) COPD (chronic obstructive pulmonary disease) Status: Acute (4) Atrial fibrillation Assessment & Plan: Coumadin on hold.. INR better. Status: Acute (5) Pacemaker Status: Acute (6) Lumbar compression fracture Status: Acute (7) Coumadin toxicity Status: Acute
--- NOTE | 2017-07-17 16:08 | CP.PCM.PN ---
Subjective - Date & Time of Evaluation Date of Evaluation: 07/17/17 Time of Evaluation: 16:07 - Subjective Subjective: Patient initiated 2 units of blood transfusion, as well as 2 units of FFP since yesterday. No more active bleeding. But the patient is extremely weak, tired, and fatigue. Denies any chest pain. Poor intake noted. Choudhary catheter On examination: Vital signs stable. Chest good air entry at the left costal nontender abdomen no pedal edema Assessment and recognition: 89-year-old female with a history of atrial fibrillation, hypertension, COPD on home O2, pacemaker atrial fibrillation on anti-coagulation. 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 Closely monitor. Upper GI bleed likely, stable at this time. Most likely secondary to the gastritis. But no evidence of active bleeding. Acute vertebral fracture, and pain Objective - Vital Signs/Intake and Output Vital Signs (last 24 hours): Temp Pulse Resp BP Pulse Ox 98.1 F 70 15 128/52 L 96 07/17/17 15:11 07/17/17 15:11 07/17/17 15:11 07/17/17 15:11 07/17/17 11:45 Intake and Output: 07/17/17 07/17/17 06:59 18:59 Intake Total 760 575 Output Total 560 155 Balance 200 420 - Medications Medications: Current Medications Acetaminophen (Tylenol 325mg Tab) 650 mg PO Q6 PRN PRN Reason: Pain, Mild (1-3) Diltiazem HCl (Cardizem Cd) 120 mg PO DAILY [facility] Last Admin: 07/16/17 09:29 Dose: 120 mg Pantoprazole Sodium 80 mg/ (Sodium Chloride) 100 mls @ 10 mls/hr IVPB .Q10H [facility] PRN Reason: 8 MG/HR Last Admin: 07/17/17 06:52 Dose: 10 mls/hr Lidocaine (Lidoderm) 1 ea TD DAILY [facility] Last Admin: 07/17/17 10:53 Dose: 1 ea Metoprolol Succinate (Toprol Xl) 100 mg PO DAILY [facility] Last Admin: 07/16/17 09:29 Dose: 100 mg Multivitamins/Minerals (Therapeutic-M Tab) 1 tab PO DAILY [facility] Last Admin: 07/17/17 10:53 Dose: 1 tab Ondansetron HCl (Zofran Inj) 4 mg IVP Q6 PRN PRN Reason: Nausea/Vomiting Rosuvastatin Calcium (Crestor) 5 mg PO HS [facility] Last Admin: 07/16/17 22:59 Dose: 5 mg - Labs Labs: 07/17/17 06:32 07/17/17 06:31 PT 16.3 SECONDS (9.7-12.2) H D 07/17/17 06:32 INR 1.4 D 07/17/17 06:32 APTT 30 SECONDS (21-34) 07/17/17 06:32
[2017-07-17] MEDS: Vitamins A & D Oint UD Foilpak TOP SCH (18:29)
--- NOTE | 2017-07-17 21:29 | PN ---
DATE: 07/20/2017 NEUROLOGIC PROBLEM: Back pain secondary to pathological fracture and lumbosacral spinal disease with urinary retention. PHYSICAL EXAMINATION: VITAL SIGNS: Blood pressure 128/57, mean artery pressure of 70, pulse rate 70, respiratory rate is 18. GENERAL: The patient is seen with her sons. MENTAL STATUS EXAMINATION: She is awake, alert, oriented to person, place, and time. Mentation is normal. Speech is clear. Her as per her statement. She denies any focal problem; however, she feels herself not good. Breathing is comfortable. She moves all four extremities. She is on Choudhary catheter drainage. She denies any lower back pain at present. She had neurological examination which is unchanged to compare with the previous exam. RECOMMENDATIONS: Recommended workup bone scan showed possible sacral met and rib met. CT of the thoracic spine showed T5 as well as T12 pathological fracture and lumbosacral spine shows spondylolisthesis. The patient has anemia related to gastritis which is superimposed with her Coumadin medication. The patient is status post blood transfusion and Coumadin was on hold. The patient's condition will be discussed with her as well as her sons. Continue the present management. Ezekiel Erwin MD
[2017-07-18] MEDS: Pantoprazole 80 MG in Sodium Chloride 0.9% 100 ML IVPB SCH ×2 (02:20→05:46)
[2017-07-18 06:09] LABS: BASO % 0.5 % (0.0-2.0); EOS # 0.2 K/uL (0.0-0.7); EOS % 1.9 % (0.0-4.0); HEMOGLOBIN 9.4 g/dL (11.0-16.0); LYMPH % 23.3 % (20.0-40.0); MEAN CELL VOLUME 91.6 fL (81.0-99.0); MEAN CORPUSCULAR HEMOGLOBIN 32.3 pg (27.0-31.0); MEAN CORPUSCULAR HGB CONC 35.2 g/dL (33.0-37.0); MEAN PLATELET VOLUME 8.8 fL (7.2-11.7); MONO # 0.6 K/uL (0.0-0.8); MONO % 7.3 % (0.0-10.0); NEUT # 5.8 K/uL (1.8-7.0); RBC 2.91 Mil/uL (3.80-5.20); RED CELL DISTRIBUTION WIDTH 14.3 % (11.5-14.5); WHITE BLOOD COUNT 8.6 K/uL (4.8-10.8)
[2017-07-18 06:10] LABS: INR 1.2; PROTHROMBIN TIME 13.1 SECONDS (9.7-12.2)
[2017-07-18 06:35] LABS: ALBUMIN 2.8 g/dL (3.5-5.0); ALT/SGPT 39 U/L (9-52); AST/SGOT 32 U/L (14-36); BLOOD UREA NITROGEN 21 mg/dL (7-17); CALCIUM 8.6 mg/dl (8.6-10.4); GFR AFRICAN-AMERICAN > 60; GFR NON-AFRICAN AMERICAN > 60
[2017-07-18] MEDS: Vitamins A & D Oint UD Foilpak TOP SCH ×2 (09:30→18:55)
[2017-07-18] MEDS: Multivitamin With Minerals Tab PO SCH (09:30)
[2017-07-18] MEDS: Lidocaine 5% Patch TD SCH (09:31)
[2017-07-18] MEDS ORDERED: Pantoprazole 40 mg EC Tab PO SCH (10:00)
[2017-07-18] MEDS: Metoprolol Succinate 50 mg XL Tab PO SCH (10:17)
[2017-07-18] MEDS: Pantoprazole 40 mg EC Tab PO SCH (10:18)
--- NOTE | 2017-07-18 15:12 | CP.PCM.PN ---
Subjective - Date & Time of Evaluation Date of Evaluation: 07/18/17 Time of Evaluation: 09:00 - Subjective Subjective: Patient was seen and examined at bedside. Patient reports she is tolerating CLD , she does not have any pain at this time. 12 point ROS unremarkable. Objective - Vital Signs/Intake and Output Vital Signs (last 24 hours): Temp Pulse Resp BP Pulse Ox 98.2 F 95 H 24 144/77 98 07/18/17 10:00 07/18/17 10:18 07/18/17 10:18 07/18/17 10:18 07/18/17 10:18 Intake and Output: 07/18/17 07/18/17 06:59 18:59 Intake Total 490 580 Output Total 365 90 Balance 125 490 - Medications Medications: Current Medications Acetaminophen (Tylenol 325mg Tab) 650 mg PO Q6 PRN PRN Reason: Pain, Mild (1-3) Alprazolam (Xanax) 0.5 mg PO Q12 [facility] Last Admin: 07/18/17 09:30 Dose: 0.5 mg Diltiazem HCl (Cardizem Cd) 120 mg PO DAILY [facility] Last Admin: 07/16/17 09:29 Dose: 120 mg Lidocaine (Lidoderm) 1 ea TD DAILY [facility] Last Admin: 07/18/17 09:31 Dose: 1 ea Metoprolol Succinate (Toprol Xl) 50 mg PO DAILY [facility] Last Admin: 07/18/17 10:17 Dose: 50 mg Multivitamins/Minerals (Therapeutic-M Tab) 1 tab PO DAILY [facility] Last Admin: 07/18/17 09:30 Dose: 1 tab Pantoprazole Sodium (Protonix Ec Tab) 40 mg PO DAILY [facility] Last Admin: 07/18/17 10:18 Dose: 40 mg Rosuvastatin Calcium (Crestor) 5 mg PO HS [facility] Last Admin: 07/17/17 21:55 Dose: 5 mg Vitamin A (Vitamin A & D Oint Ud Foilpak) 1 ea TOP BID [facility] Last Admin: 07/18/17 09:30 Dose: 1 ea - Labs Labs: 07/18/17 05:55 07/18/17 05:58 PT 13.1 SECONDS (9.7-12.2) H 07/18/17 05:55 INR 1.2 07/18/17 05:55 APTT 30 SECONDS (21-34) 07/17/17 06:32 - Constitutional Appears: No Acute Distress - Head Exam Head Exam: NORMAL INSPECTION, NORMOCEPHALIC - Eye Exam Eye Exam: EOMI, Normal appearance, PERRL Pupil Exam: NORMAL ACCOMODATION - ENT Exam ENT Exam: Mucous Membranes Moist - Respiratory Exam Respiratory Exam: Clear to Ausculation Bilateral, NORMAL BREATHING PATTERN. absent: Decreased Breath Sounds - Cardiovascular Exam Cardiovascular Exam: REGULAR RHYTHM - GI/Abdominal Exam GI & Abdominal Exam: Soft, Normal Bowel Sounds. absent: Distended, Tenderness, Organomegaly - Rectal Exam Rectal Exam: Deferred - Extremities Exam Extremities Exam: Normal Inspection. absent: Pedal Edema, Tenderness - Neurological Exam Neurological Exam: Alert, Awake, Oriented x3 - Psychiatric Exam Psychiatric exam: Normal Affect, Normal Mood - Skin Skin Exam: Dry, Intact, Normal Color, Warm Assessment and Plan - Assessment and Plan (Free Text) Assessment: Ms. 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 Plan: Vertebral Compression Fracture Osteoporosis Atrial Fibrillation Coumadin to not be resumed as per Cardio Coumadin Toxicity Presumed Upper GI Bleed INR of 6.4 on admission s/p PRBC, FFP, vitamin K s/p 07/16 EGD- no active bleed stabilized -INR - WNL Diastolic CHF HTN Hx Tachy-Lyla Syndrome s/p Pacemaker Disposition: Pending discharge planning DW Dr. De La Cruz, Lakisha Yun DO, PGY-1
--- NOTE | 2017-07-18 17:02 | CP.PCM.PN ---
Subjective - Date & Time of Evaluation Date of Evaluation: 07/18/17 Time of Evaluation: 17:00 - Subjective Subjective: CC: GI bleed No further bleeding noted. EGD normal. Feels fatigued Objective - Vital Signs/Intake and Output Vital Signs (last 24 hours): Temp Pulse Resp BP Pulse Ox 98.2 F 95 H 24 144/77 98 07/18/17 10:00 07/18/17 10:18 07/18/17 10:18 07/18/17 10:18 07/18/17 10:18 Intake and Output: 07/18/17 07/18/17 06:59 18:59 Intake Total 490 580 Output Total 365 90 Balance 125 490 - Medications Medications: Current Medications Acetaminophen (Tylenol 325mg Tab) 650 mg PO Q6 PRN PRN Reason: Pain, Mild (1-3) Alprazolam (Xanax) 0.5 mg PO Q12 [facility] Last Admin: 07/18/17 09:30 Dose: 0.5 mg Diltiazem HCl (Cardizem Cd) 120 mg PO DAILY [facility] Last Admin: 07/16/17 09:29 Dose: 120 mg Lidocaine (Lidoderm) 1 ea TD DAILY [facility] Last Admin: 07/18/17 09:31 Dose: 1 ea Metoprolol Succinate (Toprol Xl) 50 mg PO DAILY [facility] Last Admin: 07/18/17 10:17 Dose: 50 mg Multivitamins/Minerals (Therapeutic-M Tab) 1 tab PO DAILY [facility] Last Admin: 07/18/17 09:30 Dose: 1 tab Pantoprazole Sodium (Protonix Ec Tab) 40 mg PO DAILY [facility] Last Admin: 07/18/17 10:18 Dose: 40 mg Rosuvastatin Calcium (Crestor) 5 mg PO HS [facility] Last Admin: 07/17/17 21:55 Dose: 5 mg Vitamin A (Vitamin A & D Oint Ud Foilpak) 1 ea TOP BID [facility] Last Admin: 07/18/17 09:30 Dose: 1 ea - Labs Labs: 07/18/17 05:55 07/18/17 05:58 PT 13.1 SECONDS (9.7-12.2) H 07/18/17 05:55 INR 1.2 07/18/17 05:55 APTT 30 SECONDS (21-34) 07/17/17 06:32 - Constitutional Appears: Chronically Ill - Head Exam Head Exam: NORMOCEPHALIC - Eye Exam Eye Exam: absent: Scleral icterus Additional comments: Conjunct pale - Respiratory Exam Respiratory Exam: Clear to Ausculation Bilateral - Cardiovascular Exam Cardiovascular Exam: REGULAR RHYTHM - GI/Abdominal Exam GI & Abdominal Exam: Soft. absent: Tenderness Assessment and Plan (1) Atrial fibrillation Status: Acute (2) COPD (chronic obstructive pulmonary disease) Status: Acute (3) GI bleed Assessment & Plan: EGD negative. Now off Coumadin Monitor for further bleeding Colonoscopy not recommended unless patient rebleeds. Discussed with son Status: Acute
[2017-07-19 07:27] LABS: INR 1.1; PROTHROMBIN TIME 12.1 SECONDS (9.7-12.2)
[2017-07-19 07:41] LABS: BASO % 0.5 % (0.0-2.0); EOS # 0.1 K/uL (0.0-0.7); EOS % 1.1 % (0.0-4.0); HEMOGLOBIN 9.7 g/dL (11.0-16.0); LYMPH # 1.6 K/uL (1.0-4.3); LYMPH % 16.4 % (20.0-40.0); MEAN CELL VOLUME 92.7 fL (81.0-99.0); MEAN CORPUSCULAR HEMOGLOBIN 32.6 pg (27.0-31.0); MEAN CORPUSCULAR HGB CONC 35.2 g/dL (33.0-37.0); MEAN PLATELET VOLUME 8.7 fL (7.2-11.7); MONO # 0.9 K/uL (0.0-0.8); NEUT # 7.1 K/uL (1.8-7.0); NRBC % 0.1 % (0.0-2.0); RBC 2.98 Mil/uL (3.80-5.20); RED CELL DISTRIBUTION WIDTH 14.3 % (11.5-14.5); WHITE BLOOD COUNT 9.7 K/uL (4.8-10.8)
[2017-07-19 08:16] LABS: ALB/GLOB RATIO 1.1 (1.0-2.1); ALBUMIN 2.9 g/dL (3.5-5.0); ALT/SGPT 40 U/L (9-52); AST/SGOT 30 U/L (14-36); BLOOD UREA NITROGEN 19 mg/dL (7-17); CALCIUM 8.7 mg/dl (8.6-10.4); GFR AFRICAN-AMERICAN > 60; GFR NON-AFRICAN AMERICAN 59
[2017-07-19] MEDS: Metoprolol Succinate 50 mg XL Tab PO SCH (10:55)
[2017-07-19] MEDS: Multivitamin With Minerals Tab PO SCH (10:55)
[2017-07-19] MEDS: Vitamins A & D Oint UD Foilpak TOP SCH ×2 (10:55→18:12)
[2017-07-19] MEDS: Lidocaine 5% Patch TD SCH (10:55)
[2017-07-19] MEDS: Pantoprazole 40 mg EC Tab PO SCH (10:55)
--- NOTE | 2017-07-19 11:43 | CP.PCM.PN ---
Subjective - Date & Time of Evaluation Date of Evaluation: 07/19/17 Time of Evaluation: 09:00 - Subjective Subjective: Patient was seen and examined at bedside. Patient reports she is tolerating diet , no pain currently. She reports having a bowel movement this morning that was a small, dark, tarry. Labs were drawn afterwards. Vitals and hemoglobin are stable. 12 point ROS unremarkable. Objective - Vital Signs/Intake and Output Vital Signs (last 24 hours): Temp Pulse Resp BP Pulse Ox 97.5 F L 88 20 143/85 96 07/19/17 07:15 07/19/17 07:15 07/19/17 07:15 07/19/17 07:15 07/19/17 07:15 Intake and Output: 07/19/17 07/19/17 06:59 18:59 Intake Total 0 Output Total 1 Balance -1 - Medications Medications: Current Medications Acetaminophen (Tylenol 325mg Tab) 650 mg PO Q6 PRN PRN Reason: Pain, Mild (1-3) Alprazolam (Xanax) 0.5 mg PO Q12 [facility] Last Admin: 07/19/17 11:00 Dose: 0.5 mg Diltiazem HCl (Cardizem Cd) 120 mg PO DAILY [facility] Last Admin: 07/16/17 09:29 Dose: 120 mg Lidocaine (Lidoderm) 1 ea TD DAILY [facility] Last Admin: 07/19/17 10:55 Dose: 1 ea Metoprolol Succinate (Toprol Xl) 50 mg PO DAILY [facility] Last Admin: 07/19/17 10:55 Dose: 50 mg Multivitamins/Minerals (Therapeutic-M Tab) 1 tab PO DAILY [facility] Last Admin: 07/19/17 10:55 Dose: 1 tab Pantoprazole Sodium (Protonix Ec Tab) 40 mg PO DAILY [facility] Last Admin: 07/19/17 10:55 Dose: 40 mg Rosuvastatin Calcium (Crestor) 5 mg PO HS [facility] Last Admin: 07/18/17 21:51 Dose: 5 mg Vitamin A (Vitamin A & D Oint Ud Foilpak) 1 ea TOP BID [facility] Last Admin: 07/19/17 10:55 Dose: 1 ea - Labs Labs: 07/19/17 07:15 07/19/17 07:15 PT 12.1 SECONDS (9.7-12.2) 07/19/17 07:15 INR 1.1 07/19/17 07:15 APTT 30 SECONDS (21-34) 07/17/17 06:32 - Constitutional Appears: No Acute Distress - Head Exam Head Exam: NORMAL INSPECTION, NORMOCEPHALIC - Eye Exam Eye Exam: EOMI, Normal appearance, PERRL Pupil Exam: NORMAL ACCOMODATION - ENT Exam ENT Exam: Mucous Membranes Moist, Normal Exam - Neck Exam Neck Exam: Normal Inspection - Respiratory Exam Respiratory Exam: Clear to Ausculation Bilateral, NORMAL BREATHING PATTERN. absent: Decreased Breath Sounds - Cardiovascular Exam Cardiovascular Exam: REGULAR RHYTHM - GI/Abdominal Exam GI & Abdominal Exam: Soft, Normal Bowel Sounds. absent: Distended, Tenderness - Rectal Exam Rectal Exam: Deferred - Extremities Exam Extremities Exam: Normal Inspection. absent: Pedal Edema, Tenderness - Neurological Exam Neurological Exam: Alert, Awake, Oriented x3 - Psychiatric Exam Psychiatric exam: Normal Affect, Normal Mood - Skin Skin Exam: Dry, Intact, Normal Color, Warm Assessment and Plan - Assessment and Plan (Free Text) Assessment: Ms. 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 Plan: Vertebral Compression Fracture Osteoporosis Atrial Fibrillation Coumadin to not be resumed as per Cardio Coumadin Toxicity Presumed Upper GI Bleed - NOT actively bleeding INR of 6.4 on admission s/p PRBC, FFP, vitamin K s/p 07/16 EGD- no active bleed stabilized -INR - WNL Diastolic CHF HTN Hx Tachy-Antoine Syndrome s/p Pacemaker Disposition: Pending repeat PT eval for recommendations for discharge planning. [facility] De La Cruz, Lakisha Yun DO, PGY-1
--- NOTE | 2017-07-19 16:34 | CP.PCM.PN ---
Subjective - Date & Time of Evaluation Date of Evaluation: 07/19/17 Time of Evaluation: 16:29 - Subjective Subjective: Pt appears tired, but NAD, son at her side Objective - Vital Signs/Intake and Output Vital Signs (last 24 hours): Temp Pulse Resp BP Pulse Ox 98 F 90 20 137/86 96 07/19/17 15:42 07/19/17 15:42 07/19/17 15:42 07/19/17 15:42 07/19/17 15:42 Intake and Output: 07/19/17 07/19/17 06:59 18:59 Intake Total 0 Output Total 1 Balance -1 - Medications Medications: Current Medications Acetaminophen (Tylenol 325mg Tab) 650 mg PO Q6 PRN PRN Reason: Pain, Mild (1-3) Alprazolam (Xanax) 0.5 mg PO Q12 [facility] Last Admin: 07/19/17 11:00 Dose: 0.5 mg Diltiazem HCl (Cardizem Cd) 120 mg PO DAILY [facility] Last Admin: 07/16/17 09:29 Dose: 120 mg Lidocaine (Lidoderm) 1 ea TD DAILY [facility] Last Admin: 07/19/17 10:55 Dose: 1 ea Metoprolol Succinate (Toprol Xl) 50 mg PO DAILY [facility] Last Admin: 07/19/17 10:55 Dose: 50 mg Multivitamins/Minerals (Therapeutic-M Tab) 1 tab PO DAILY [facility] Last Admin: 07/19/17 10:55 Dose: 1 tab Pantoprazole Sodium (Protonix Ec Tab) 40 mg PO DAILY [facility] Last Admin: 07/19/17 10:55 Dose: 40 mg Rosuvastatin Calcium (Crestor) 5 mg PO HS [facility] Last Admin: 07/18/17 21:51 Dose: 5 mg Vitamin A (Vitamin A & D Oint Ud Foilpak) 1 ea TOP BID [facility] Last Admin: 07/19/17 10:55 Dose: 1 ea - Labs Labs: 07/19/17 07:15 07/19/17 07:15 PT 12.1 SECONDS (9.7-12.2) 07/19/17 07:15 INR 1.1 07/19/17 07:15 APTT 30 SECONDS (21-34) 07/17/17 06:32 - Constitutional Appears: No Acute Distress - Head Exam Head Exam: ATRAUMATIC - Eye Exam Eye Exam: EOMI - ENT Exam ENT Exam: Mucous Membranes Moist - Neck Exam Neck Exam: Full ROM - Respiratory Exam Respiratory Exam: Clear to Ausculation Bilateral - Cardiovascular Exam Cardiovascular Exam: Irregular Rhythm - GI/Abdominal Exam GI & Abdominal Exam: Normal Bowel Sounds - Exam External exam: NORMAL EXTERNAL EXAM - Extremities Exam Extremities Exam: Normal Inspection - Back Exam Back Exam: NORMAL INSPECTION - Neurological Exam Neurological Exam: Alert, Awake, Oriented x3 - Psychiatric Exam Psychiatric exam: Normal Affect Assessment and Plan - Assessment and Plan (Free Text) Assessment: 1. As long as etiology of anemia has not been determined, and there is the possibility of GI bleed, pt cannot have warfarin or NOAC. Unfortunately, this places pt at increased risk of stroke. When etiology of anemia, has been determined and no longer a bleeding risk, and /or cleared by GI, anticoagulation can be resumed. 2. afib hear rte controlled. Pt has ppm , stable.
[2017-07-20 06:38] LABS: BASO % 0.5 % (0.0-2.0); EOS # 0.1 K/uL (0.0-0.7); HEMOGLOBIN 10.1 g/dL (11.0-16.0); MEAN CELL VOLUME 92.8 fL (81.0-99.0); MEAN CORPUSCULAR HEMOGLOBIN 32.6 pg (27.0-31.0); MEAN CORPUSCULAR HGB CONC 35.1 g/dL (33.0-37.0); MEAN PLATELET VOLUME 8.5 fL (7.2-11.7); MONO # 0.8 K/uL (0.0-0.8); NEUT # 6.3 K/uL (1.8-7.0); NEUT % 67.5 % (50.0-75.0); RBC 3.1 Mil/uL (3.80-5.20); RED CELL DISTRIBUTION WIDTH 14.3 % (11.5-14.5); WHITE BLOOD COUNT 9.3 K/uL (4.8-10.8)
[2017-07-20 08:01] VITALS: BP 139/85; PULSE 91; RESP 18; TEMP 97.4; O2SAT 97
--- NOTE | 2017-07-20 09:49 | CP.PCM.DIS ---
Provider - Provider Date of Admission: 07/14/17 20:40 Attending physician: Luz Maria De La Cruz MD Time Spent in preparation of Discharge (in minutes): 55 Hospital Course - Lab Results Lab Results: Micro Results 07/18/17 Unknown Naris MRSA Culture - Final MRSA NOT DETECTED 07/16/17 01:04 Nose MRSA Culture (Admit) - Final MRSA NOT DETECTED Most Recent Lab Values WBC 9.3 K/uL (4.8-10.8) 07/20/17 06:10 RBC 3.10 Mil/uL (3.80-5.20) L 07/20/17 06:10 Hgb 10.1 g/dL (11.0-16.0) L 07/20/17 06:10 Hct 28.8 % (34.0-47.0) L 07/20/17 06:10 MCV 92.8 fL (81.0-99.0) 07/20/17 06:10 MCH 32.6 pg (27.0-31.0) H 07/20/17 06:10 MCHC 35.1 g/dL (33.0-37.0) 07/20/17 06:10 RDW 14.3 % (11.5-14.5) 07/20/17 06:10 Plt Count 230 K/uL (130-400) 07/20/17 06:10 MPV 8.5 fL (7.2-11.7) 07/20/17 06:10 Neut % (Auto) 67.5 % (50.0-75.0) 07/20/17 06:10 Lymph % (Auto) 22.0 % (20.0-40.0) 07/20/17 06:10 Mitchell % (Auto) 9.0 % (0.0-10.0) 07/20/17 06:10 Eos % (Auto) 1.0 % (0.0-4.0) 07/20/17 06:10 Baso % (Auto) 0.5 % (0.0-2.0) 07/20/17 06:10 Neut # (Auto) 6.3 K/uL (1.8-7.0) 07/20/17 06:10 Lymph # (Auto) 2.0 K/uL (1.0-4.3) 07/20/17 06:10 Mitchell # (Auto) 0.8 K/uL (0.0-0.8) 07/20/17 06:10 Eos # (Auto) 0.1 K/uL (0.0-0.7) 07/20/17 06:10 Baso # (Auto) 0.0 K/uL (0.0-0.2) 07/20/17 06:10 ESR 60 mm/hr (0-20) H 07/15/17 08:22 PT 12.1 SECONDS (9.7-12.2) 07/19/17 07:15 INR 1.1 07/19/17 07:15 APTT 30 SECONDS (21-34) 07/17/17 06:32 Sodium 136 mmol/L (132-148) 07/19/17 07:15 Potassium 4.0 mmol/L (3.6-5.2) 07/19/17 07:15 Chloride 99 mmol/L (98-107) 07/19/17 07:15 Carbon Dioxide 29 mmol/L (22-30) 07/19/17 07:15 Anion Gap 11 (10-20) 07/19/17 07:15 BUN 19 mg/dL (7-17) H 07/19/17 07:15 Creatinine 0.9 mg/dL (0.7-1.2) 07/19/17 07:15 Est GFR ( Amer) > 60 07/19/17 07:15 Est GFR (Non-Af Amer) 59 07/19/17 07:15 Random Glucose 103 mg/dL (65-105) 07/19/17 07:15 Calcium 8.7 mg/dl (8.6-10.4) 07/19/17 07:15 Phosphorus 3.1 mg/dL (2.5-4.5) 07/17/17 06:31 Magnesium 2.5 mg/dL (1.6-2.3) H 07/17/17 06:31 Total Bilirubin 0.6 mg/dL (0.2-1.3) 07/19/17 07:15 AST 30 U/L (14-36) 07/19/17 07:15 ALT 40 U/L (9-52) 07/19/17 07:15 Alkaline Phosphatase 202 U/L (38-126) H 07/19/17 07:15 Total Protein 5.5 g/dL (6.3-8.3) L 07/19/17 07:15 Albumin 2.9 g/dL (3.5-5.0) L 07/19/17 07:15 Globulin 2.6 gm/dL (2.2-3.9) 07/19/17 07:15 Albumin/Globulin Ratio 1.1 (1.0-2.1) 07/19/17 07:15 Urine Color Straw (YELLOW) 07/14/17 19:44 Urine Clarity Clear (Clear) 07/14/17 19:44 Urine pH 5.0 (5.0-8.0) 07/14/17 19:44 Ur Specific Beryl 1.008 (1.003-1.030) 07/14/17 19:44 Urine Protein Negative mg/dL (NEGATIVE) 07/14/17 19:44 Urine Glucose (UA) Normal mg/dL (Normal) 07/14/17 19:44 Urine Ketones Negative mg/dL (NEGATIVE) 07/14/17 19:44 Urine Blood Negative (NEGATIVE) 07/14/17 19:44 Urine Nitrate Negative (NEGATIVE) 07/14/17 19:44 Urine Bilirubin Negative (NEGATIVE) 07/14/17 19:44 Urine Urobilinogen Normal mg/dL (0.2-1.0) 07/14/17 19:44 Ur Leukocyte Esterase Trace Xiomara/uL (Negative) 07/14/17 19:44 Urine WBC (Auto) 5 /hpf (0-5) 07/14/17 19:44 Urine RBC (Auto) < 1 /hpf (0-3) 07/14/17 19:44 Ur Squamous Epith Cells 2 /hpf (0-5) 07/14/17 19:44 Serum Immunofixation Detected (Not Detected) H 07/15/17 08:22 Urine Immunofixation Not detected (Not Detected) 07/15/17 18:45 Blood Type A POSITIVE 07/15/17 23:57 Antibody Screen Negative 07/15/17 23:57 - Hospital Course Hospital Course: Upon Admission: 88-year-old female with history of atrial fibrillation, congestive heart failure , hypertension, pacemaker came to ER with pain in the back. Tuesday pt son called me and told me that she started to have more pain and unable to walk even with COFFEE BREAK ATTENDANT help and walker. Her pain got more worse and unable to stand today and family brought her to ED. There is no fall or no injury recently. NO recent cough. Pt is very anxious and c/o insomina with pain. She also stopped taking her lasix because she was not able to get up and go to bathroom. Patient recently had echocardiogram, and also evaluated for pacemaker by finished yarn examiner . Some urinary incontinence noted. Patient has a homemaker 4 days per week, 2 hours per day. She sleeping okay, patient is using oxygen almost 24 hours. PMH: COPD, atrial fib, CHF, HTN, pacemaker, osteoporosis, anxiety allergy: NKDA FH: son: anxiety and hypercholesterolemia father and mother natural cause Surgery: Appendectomy, Pacemaker PH: Smoking:Quit greater than 40 years ago ago. 2ppd Alcohol: Alcohol Status: Nondrinker. Caffeine intake:Admits to taking caffeinated beverages. Review of systems: Denies any headache, generalized body pain, lower leg pain noted, sometimes swelling in the legs noted, denies any abdominal swelling c/o pain over the lower back noted and tenderness Throughout Hospital Course: Ms. 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 Plan: Vertebral Compression Fracture Osteoporosis Lidoderm patch daily, will be discharged to [facility] Atrial Fibrillation Coumadin to be HELD for now; 1. As long as etiology of anemia has not been determined, and there is the possibility of GI bleed, pt cannot have warfarin or NOAC. Unfortunately, this places pt at increased risk of stroke. When etiology of anemia, has been determined and no longer a bleeding risk, and /or cleared by GI, anticoagulation can be resumed. 2. afib hear rte controlled. Pt has ppm , stable. Coumadin Toxicity Presumed Upper GI Bleed - NOT actively bleeding INR of 6.4 on admission s/p PRBC, FFP, vitamin K s/p 07/16 EGD- no active bleed stabilized -INR - WNL Will resume coumadin in future, if no signs of bleeding and hemoglobin stable Diastolic CHF HTN Hx Tachy-Lyla Syndrome s/p Pacemaker Discharge Exam - Head Exam Head Exam: ATRAUMATIC, NORMAL INSPECTION, NORMOCEPHALIC - Eye Exam Eye Exam: EOMI, Normal appearance, PERRL Pupil Exam: NORMAL ACCOMODATION - ENT Exam ENT Exam: Mucous Membranes Moist - Respiratory Exam Respiratory Exam: Clear to PA & Lateral, NORMAL BREATHING PATTERN. absent: Decreased Breath Sounds - Cardiovascular Exam Cardiovascular Exam: REGULAR RHYTHM - GI/Abdominal Exam GI & Abdominal Exam: Normal Bowel Sounds, Soft. absent: Distended, Organomegaly , Tenderness - Rectal Exam Rectal Exam: Deferred - Extremities Exam Extremities exam: normal inspection, pedal pulses present - Neurological Exam Neurological exam: Alert, CN II-XII Intact, Oriented x3 - Psychiatric Exam Psychiatric exam: Normal Affect, Normal Mood - Skin Skin Exam: Dry, Intact, Normal Color, Warm Discharge Plan - Discharge Medications Prescriptions: Alprazolam [Xanax] 0.5 mg PO Q12 #28 tab - Follow Up Plan Condition: FAIR Disposition: HOME/ ROUTINE Additional Instructions: As per Cardiology: 1. As long as etiology of anemia has not been determined, and there is the possibility of GI bleed, pt cannot have warfarin or NOAC. Unfortunately, this places pt at increased risk of stroke. When etiology of anemia, has been determined and no longer a bleeding risk, and /or cleared by GI, anticoagulation can be resumed. 2. afib hear rte controlled. Pt has ppm , stable. For now we will monitor, if hemoglobin stable, will resume coumadin at future date.
--- NOTE | 2017-07-20 10:28 | PN ---
DATE: NEUROLOGIC PROBLEM: Chronic lower back pain. PHYSICAL EXAMINATION: VITAL SIGNS: Blood pressure 156/73, mean artery pressure of 104, respiratory rate 18, temperature 98 degrees Fahrenheit, pulse rate 94 and regular. GENERAL: The patient is sleepy, arousable verbally. Complaints of lower back pain and states she is not feeling well. Examination is unchanged compared with the previous examination. The patient did have an episode of atrial fibrillation with tachybrady syndrome. The patient has been evaluated by Cardiology . Physiotherapy should be initiated at the bedside, possible getting her out of the bed and gait training should be given. The patient will be followed. Ezekiel Erwin MD
[2017-07-20] MEDS: Multivitamin With Minerals Tab PO SCH (10:55)
[2017-07-20] MEDS: Pantoprazole 40 mg EC Tab PO SCH (10:55)
[2017-07-20] MEDS: Lidocaine 5% Patch TD SCH (10:55)
[2017-07-20] MEDS: Metoprolol Succinate 50 mg XL Tab PO SCH (10:55)
[2017-07-20] MEDS: Vitamins A & D Oint UD Foilpak TOP SCH (10:55)
== END 2017-07-20 15:45 | DRG 543 ==
LOC: C.ER 18:22 → C.9E 20:40 → C.6T 20:40 → C.9I 07-16 00:32 → C.6T 07-18 17:26
PROVIDERS: ADMIT Internal Medicine; ATTEND Internal Medicine
PROC: 30233N1 Transfusion of Nonautologous Red Blood Cells into Peripheral Vein, Percutaneous Approach (ICD-10-PCS; 2017-07-16)
PROC: 30233L1 Transfusion of Nonautologous Fresh Plasma into Peripheral Vein, Percutaneous Approach (ICD-10-PCS; principal; 2017-07-16 12:00)
DX: M80.08XA Age-related osteoporosis with current pathological fracture, vertebra(e), initial encounter for fracture (principal); K92.1 Melena; I50.42 Chronic combined systolic (congestive) and diastolic (congestive) heart failure; I11.0 Hypertensive heart disease with heart failure; I48.91 Unspecified atrial fibrillation; J44.9 Chronic obstructive pulmonary disease, unspecified; R26.2 Difficulty in walking, not elsewhere classified; Z87.891 Personal history of nicotine dependence; E78.00 Pure hypercholesterolemia, unspecified; Z95.0 Presence of cardiac pacemaker; T45.515A Adverse effect of anticoagulants, initial encounter; K29.70 Gastritis, unspecified, without bleeding; R33.9 Retention of urine, unspecified; D64.9 Anemia, unspecified; I49.5 Sick sinus syndrome; F41.9 Anxiety disorder, unspecified

== ENCOUNTER 2017-07-31 21:42 | Inpatient (IN) | payer MEDICARE, OTHER ==
--- NOTE | 2017-07-31 22:43 | C.PDOC ---
Time Seen by Provider: 07/31/17 22:43 Chief Complaint (Nursing): Shortness Of Breath Past Medical History Reviewed: Historical Data, Nursing Documentation, Vital Signs Vital Signs: Last Vital Signs Temp 98.3 F 07/31/17 21:52 Pulse 93 H 07/31/17 21:52 Resp 20 07/31/17 22:22 BP 146/68 07/31/17 21:52 Pulse Ox 99 07/31/17 22:43 - Medical History PMH: Anxiety, COPD, HTN, Hypercholesterolemia, Osteoporosis, Peripheral Edema ( BLE-on Lasix but stopped taking because she has to go often to the [place]) Denies: Chronic Kidney Disease Surgical History: Appendectomy, Pacemaker - [facility] Procedures TRANSFUSE NONAUT FRESH PLASMA IN PERIPH VEIN, PERC (07/14/17) TRANSFUSE NONAUT RED BLOOD CELLS IN PERIPH VEIN, PERC (07/14/17) Family History: States: No Known Family Hx - Social History Hx Alcohol Use: No Hx Substance Use: No - Immunization History Hx Tetanus Toxoid Vaccination: Yes Hx Pneumococcal Vaccination: No ED Course And Treatment ECG: Interpreted By Me, Viewed By Me ECG Rhythm: Atrial Fibrillation (86), Nonspecific Changes O2 Sat by Pulse Oximetry: 99 Pulse Ox Interpretation: Normal - Radiology CXR: Interpreted by Me, Viewed By Me Disposition Counseled Patient/Family Regarding: Studies Performed, Diagnosis - Disposition Disposition Time: 22:43 Forms: [employer] (Hungarian)
--- NOTE | 2017-07-31 23:00 | C.PDOC ---
History Of Present Illness 89 y/o female [facility] for complaints of feeling weak, tired, and unable to ambulate. Of note, she was recently admitted for vertebral fracture. Patient states that she just feels weak. Denies SOB, fever, chills, nausea, or vomiting. Patient also complains of low back pain. Time Seen by Provider: 07/31/17 22:43 Chief Complaint (Nursing): Shortness Of Breath History Per: Patient History/Exam Limitations: no limitations Onset/Duration Of Symptoms: Hrs Current Symptoms Are (Timing): Still Present Severity: Moderate Pain Scale Rating Of: 4 Reports Recently: Seen In ED, Treated By A Physician, Hospitalized Recent travel outside of the [place]: No Additional History Per: Family, [facility] Past Medical History Reviewed: Historical Data, Nursing Documentation, Vital Signs Vital Signs: Last Vital Signs Temp 99.1 F 07/31/17 23:27 Pulse 80 07/31/17 23:27 Resp 20 07/31/17 23:27 BP 141/69 07/31/17 23:27 Pulse Ox 99 07/31/17 23:33 - Medical History PMH: Anxiety, COPD, Fractures (vertebral), HTN, Hypercholesterolemia, Osteoporosis, Peripheral Edema (BLE-on Lasix but stopped taking because she has to go often to [place]) Denies: Chronic Kidney Disease Surgical History: Appendectomy, Pacemaker - [facility] Procedures TRANSFUSE NONAUT FRESH PLASMA IN PERIPH VEIN, PERC (07/14/17) TRANSFUSE NONAUT RED BLOOD CELLS IN PERIPH VEIN, PERC (07/14/17) Family History: States: No Known Family Hx - Social History Hx Tobacco Use: Yes (former) Hx Alcohol Use: No Hx Substance Use: No - Immunization History Hx Tetanus Toxoid Vaccination: Yes Hx Pneumococcal Vaccination: No Review Of Systems Constitutional: Positive for: Weakness, Malaise. Negative for: Fever, Chills Eyes: Negative for: Vision Change ENT: Negative for: Throat Pain Cardiovascular: Negative for: Chest Pain Respiratory: Negative for: Shortness of Breath Gastrointestinal: Negative for: Nausea, Vomiting Genitourinary: Negative for: Dysuria Musculoskeletal: Positive for: Back Pain Skin: Negative for: Rash Neurological: Positive for: Weakness (generalized) Psych: Negative for: Anxiety Physical Exam - Physical Exam Appears: No Acute Distress, Other (generalized malaise) Skin: Warm, Dry Head: Normacephalic Eye(s): bilateral: Normal Inspection Oral Mucosa: Moist Neck: Trachea Midline, Supple Chest: Symmetrical, Other (pacer left chest wall) Cardiovascular: Rhythm Irregular Respiratory: No Rales, Rhonchi (scattered), No Wheezing Gastrointestinal/Abdominal: Soft, No Tenderness, No Distention Back: Vertebral Tenderness (to the lumbar region) Extremity: No Tenderness Extremity: Bilateral: Atraumatic, Normal Color And Temperature, Normal ROM ( moving all extremities) Pulses: Left Dorsalis Pedis: Normal, Right Dorsalis Pedis: Normal Neurological/Psych: Oriented x3 Gait: Unable To Assess ED Course And Treatment - Laboratory Results Result Diagrams: 07/31/17 23:08 07/31/17 23:08 ECG: Interpreted By Me, Viewed By Me ECG Rhythm: Atrial Fibrillation (85), Nonspecific Changes O2 Sat by Pulse Oximetry: 99 (RA) Pulse Ox Interpretation: Normal - Radiology CXR Interpretation: Yes: Other (pacer left chest wall, unchanged from 07/15/17). No: Infiltrates, Fracture, Pnemothorax Progress Note: Ordered blood work, UA, and chest x-ray. Disposition Discussed With Dr.: Luz Maria De La Cruz Comment: accepted the pt on his service and took over the care at 12:30 AM Doctor Will See Patient In The: Hospital Counseled Patient/Family Regarding: Studies Performed, Diagnosis - Disposition Disposition: HOSPITALIZED Disposition Time: 22:59 Condition: FAIR Forms: [facility] (Yakut) - POA Present On Arrival: Poor Glycemic Control - Clinical Impression Clinical Impression: Lumbar compression fracture, Atrial fibrillation, Pacemaker, CHF (congestive heart failure), Malaise and fatigue - Scribe Statement The provider has reviewed the documentation as recorded by the Bella Kessler Provider Attestation: All medical record entries made by the Tyreseibanna marie were at my direction and personally dictated by me. I have reviewed the chart and agree that the record accurately reflects my personal performance of the history, physical exam, medical decision making, and the department course for this patient. I have also personally directed, reviewed, and agree with the discharge instructions and disposition. Decision To Admit - Pt Status Changed To: Hospital Disposition Of: Observation - . Bed Request Type: Telemetry Admitting Physician: Luz Maria De La Cruz Patient Diagnosis: Lumbar compression fracture, Atrial fibrillation, Pacemaker, CHF (congestive heart failure), Malaise and fatigue
[2017-07-31 23:13] LABS: BASO % 0.5 % (0.0-2.0); EOS # 0.1 K/uL (0.0-0.7); EOS % 1.5 % (0.0-4.0); HEMOGLOBIN 10.8 g/dL (11.0-16.0); LYMPH # 1.1 K/uL (1.0-4.3); MEAN CORPUSCULAR HEMOGLOBIN 31.1 pg (27.0-31.0); MEAN CORPUSCULAR HGB CONC 33.4 g/dL (33.0-37.0); MEAN PLATELET VOLUME 8.5 fL (7.2-11.7); MONO # 0.7 K/uL (0.0-0.8); MONO % 10.7 % (0.0-10.0); NEUT # 4.3 K/uL (1.8-7.0); NEUT % 69.3 % (50.0-75.0); NRBC % 0.1 % (0.0-2.0); RBC 3.47 Mil/uL (3.80-5.20); RED CELL DISTRIBUTION WIDTH 15.1 % (11.5-14.5); WHITE BLOOD COUNT 6.2 K/uL (4.8-10.8)
[2017-07-31 23:19] LABS: PROTHROMBIN TIME 11.5 SECONDS (9.7-12.2)
[2017-07-31 23:25] LABS: VENOUS BLOOD GAS BASE EXCESS 1.5 mmol/L (0.0-2.0); VENOUS BLOOD GAS PCO2 43 mmHg (40-60); VENOUS BLOOD GAS PO2 35 mm/Hg (30-55)
[2017-07-31 23:27] LABS: SQUAMOUS EPITHIAL 5 /hpf (0-5); URINE BILIRUBIN NEGATIVE (NEGATIVE); URINE BLOOD NEGATIVE (NEGATIVE); URINE CLARITY Hazy (Clear); URINE COLOR Amber (YELLOW); URINE GLUCOSE (UA) NORMAL (Normal); URINE LEUKOCYTE ESTERASE NEG Leu/uL (Negative); URINE PROTEIN NEGATIVE (NEGATIVE)
[2017-07-31 23:28] LABS: ALB/GLOB RATIO 0.9 (1.0-2.1); ALBUMIN 3.3 g/dL (3.5-5.0); ALT/SGPT 25 U/L (9-52); AST/SGOT 28 U/L (14-36); BLOOD UREA NITROGEN 16 mg/dL (7-17); CALCIUM 9.2 mg/dl (8.6-10.4); GFR AFRICAN-AMERICAN > 60; GFR NON-AFRICAN AMERICAN 59; LIPASE 53 U/L (23-300)
[2017-07-31 23:36] LABS: B-TYPE NATRIURETIC PEPTIDE 1050 pg/mL (0-900)
--- NOTE | 2017-08-01 08:21 | RAD ---
Chest x-ray single frontal view History: Shortness of breath. Comparison: 07/15/2017 Findings Left-sided pacemaker. Additional battery pack device projects over the left kash abdomen. Small left pleural effusion with adjacent left basilar consolidative changes. Moderate venous congestion. Confluent patchy airspace opacities in the right suprahilar region, right lung base, and lateral aspect of the left mid to lower lung. Cardiomegaly. Degenerative changes in the spine and shoulders. Impression: Left-sided pacemaker. Additional battery pack device projects over the left kash abdomen. Small left pleural effusion with adjacent left basilar consolidative changes. Moderate venous congestion. Confluent patchy airspace opacities in the right suprahilar region, right lung base, and lateral aspect of the left mid to lower lung. Cardiomegaly.
[2017-08-01] MEDS: Pantoprazole 40 mg EC Tab PO SCH (10:16)
[2017-08-01] MEDS: Lidocaine 5% Patch TD SCH (10:16)
[2017-08-01] MEDS: Metoprolol Succinate 50 mg XL Tab PO SCH (10:16)
[2017-08-02] MEDS: Lidocaine 5% Patch TD SCH (10:13)
[2017-08-02] MEDS: Metoprolol Succinate 50 mg XL Tab PO SCH (10:13)
[2017-08-02] MEDS: Pantoprazole 40 mg EC Tab PO SCH (10:13)
[2017-08-02 10:58] LABS: BASO # 0.1 K/uL (0.0-0.2); EOS # 0.1 K/uL (0.0-0.7); EOS % 2.2 % (0.0-4.0); HEMOGLOBIN 11.1 g/dL (11.0-16.0); LYMPH # 1.3 K/uL (1.0-4.3); LYMPH % 23.6 % (20.0-40.0); MEAN CELL VOLUME 92.5 fL (81.0-99.0); MEAN CORPUSCULAR HEMOGLOBIN 31.3 pg (27.0-31.0); MEAN CORPUSCULAR HGB CONC 33.8 g/dL (33.0-37.0); MONO # 0.4 K/uL (0.0-0.8); NEUT # 3.7 K/uL (1.8-7.0); NEUT % 65.2 % (50.0-75.0); NRBC % 0.1 % (0.0-2.0); RBC 3.55 Mil/uL (3.80-5.20); RED CELL DISTRIBUTION WIDTH 14.9 % (11.5-14.5); WHITE BLOOD COUNT 5.6 K/uL (4.8-10.8)
[2017-08-02 11:24] LABS: ALBUMIN 3.3 g/dL (3.5-5.0); ALT/SGPT 22 U/L (9-52); AST/SGOT 30 U/L (14-36); BLOOD UREA NITROGEN 13 mg/dL (7-17); CALCIUM 9.4 mg/dl (8.6-10.4); GFR AFRICAN-AMERICAN > 60; GFR NON-AFRICAN AMERICAN 59
--- NOTE | 2017-08-02 18:48 | CP.PCM.PN ---
Subjective - Date & Time of Evaluation Date of Evaluation: 08/02/17 Time of Evaluation: 18:48 - Subjective Subjective: Patient was examined by me this morning. She is more awake. Corresponding She was moving all 4 extremities. She was also feeling hungry. On examination: Chest good air entry. Vital signs stable. Temp Pulse Resp BP Pulse Ox 98.2 F 93 H 18 134/66 95 08/02/17 15:38 08/02/17 16:00 08/02/17 15:38 08/02/17 15:38 08/02/17 15:38 Regular heart sound. Nontender abdomen. Extremities edema 1 plus Labs noted. Assessment/recommendation: 89-year-old female with history of hypertension. Atrialfibrillation. COPD Home oxygen. Pacemaker. GI bleed Status post endoscopy. Blood transfusion during the last hospitalization. Admitted withaltered mental status. Improving. Most likely Related to metabolic encephalopathy. Improving. Will discontinue benzodiazepine. Physical therapy, out of bed to chair Objective - Vital Signs/Intake and Output Vital Signs (last 24 hours): Temp Pulse Resp BP Pulse Ox 98.2 F 93 H 18 134/66 95 08/02/17 15:38 08/02/17 16:00 08/02/17 15:38 08/02/17 15:38 08/02/17 15:38 - Medications Medications: Current Medications Acetaminophen (Tylenol 325mg Tab) 650 mg PO Q4H PRN PRN Reason: Temperature Alprazolam (Xanax) 0.25 mg PO HS [facility] Last Admin: 08/01/17 21:27 Dose: Not Given Heparin Sodium (Porcine) (Heparin) 5,000 units SC Q8 [facility] Last Admin: 08/02/17 13:30 Dose: 5,000 units Lidocaine (Lidoderm) 1 ea TD DAILY [facility] Last Admin: 08/02/17 10:13 Dose: 1 ea Metoprolol Succinate (Toprol Xl) 50 mg PO DAILY [facility] Last Admin: 08/02/17 10:13 Dose: 50 mg Pantoprazole Sodium (Protonix Ec Tab) 40 mg PO DAILY [facility] Last Admin: 08/02/17 10:13 Dose: 40 mg Rosuvastatin Calcium (Crestor) 10 mg PO HS [facility] Last Admin: 08/01/17 21:38 Dose: 10 mg Vitamin B Complex/Folic Acid (Berroca) 1 tab PO DAILY [facility] Last Admin: 08/02/17 10:13 Dose: 1 tab - Labs Labs: 08/02/17 10:51 08/02/17 10:51 PT 11.5 SECONDS (9.7-12.2) 07/31/17 23:08 INR 1.0 07/31/17 23:08 APTT 29 SECONDS (21-34) 07/31/17 23:08
--- NOTE | 2017-08-02 18:48 | CP.PCM.HP ---
History of Present Illness - History of Present Illness History of Present Illness: Chief complaint: patient was sent from halfway with agonal breathing. History present illness: 88-year-old female with history of atrial fibrillation, congestive heart failure , hypertension, pacemaker Recently hospitalized, but the acute to subacute vertebral fracture, complicated with pain. During the stay patient developed acute GI bleed, and the Coumadin was discontinued. Patient underwent upper endoscopy, no evidence of acute bleed, and the patient received a blood transfusion. After a few days the patient stabilized, was sent to rehabilitation. In the rehabilitation patient was not improving well, increasing weakness, increasing lethargy, poor intake noted. Patient's family called me, and I examined the patient the day, that night patient was having increasing shortness of breath, increasing lethargic, patient was not responding completely well to my commands. And also noted to have increasing respiratory distress, I did well, breathing, so I suggested that patient needs to go to the emergency room for the Further management. PMH: COPD, atrial fib, CHF, HTN, pacemaker, osteoporosis, anxiety, Vertebral fracture , GI bleed allergy: NKDA FH: son: anxiety and hypercholesterolemia father and mother natural cause Surgery: Appendectomy, Pacemaker PH: Smoking:Quit greater than 40 years ago ago. 2ppd Alcohol: Alcohol Status: Nondrinker. Caffeine intake:Admits to taking caffeinated beverages. Review of systems: Patient now, mostly sleepy, lethargic. Responding to verbal commands slightly. Patient denies any chest pain. Shortness of breath noted. Using oxygen. Leg swelling, leg weakness noted. On examination: HEENT PERRLA, neck supple No thyromegaly was noted and no cervical adenopathy noted Chest bilateral good air entry, no wheezing or rales noted CVS regular heart sound, no murmur Abdomen soft and no organomegaly Extremities pedal edema noted bilateral pedal pulses are good. . [employer], patient is drowsy, sleepy, responding very poorly. Able to move with the stimulus both lower extremities. tenderness over the lower lumbar region noted able to move the lower extremities but weak Repeat labs in the emergency room reviewed. Chest x-ray reviewed. Vital signs stable. Assessment/Plan: 89-year-old female with history of congestive heart failure, systolic in nature , stable at this time, on medications as well as home oxygen. Atrial fibrillation on medications. Anticoagulation. Being evaluated by benefits counselor. Hypercholesterolemia, COPD, hypertension, pacemaker. admitted with acute vertibral compression fracture with weakness Patient was recently hospitalized with acute vertebral fracture, and acute GI bleed, status post blood transfusion. Patient now off anticoagulation. Now admitted with altered mental status, most likely related to Medications induced. Renal insufficiency. Are dehydration possible. Will reduce, discontinue benzodiazepines. Will closely monitor. Discussed with patient some Present on Admission - Present on Admission Any Indicators Present on Admission: No History of DVT/PE: No History of Uncontrolled Diabetes: No Urinary Catheter: No Decubitus Ulcer Present: No Past Patient History - Past Medical History & Family History Past Medical History?: Yes - Past Social History Smoking Status: Former Smoker - CARDIAC Hx Cardiac Disorders: Yes Hx Hypercholesterolemia: Yes Hx Hypertension: Yes - PULMONARY Hx Respiratory Disorders: Yes Hx Chronic Obstructive Pulmonary Disease (COPD): Yes - NEUROLOGICAL Hx Neurological Disorder: No - HEENT Hx HEENT Problems: Yes Hx Cataracts: Yes (Surgery) - RENAL Hx Chronic Kidney Disease: No - ENDOCRINE/METABOLIC Hx Endocrine Disorders: No - HEMATOLOGICAL/ONCOLOGICAL Hx Blood Disorders: No - INTEGUMENTARY Hx Dermatological Problems: No - MUSCULOSKELETAL/RHEUMATOLOGICAL Hx Falls: Yes Hx Fractures: Yes (vertebral) Hx Osteoporosis: Yes - GASTROINTESTINAL Hx Gastrointestinal Disorders: No - GENITOURINARY/GYNECOLOGICAL Hx Genitourinary Disorders: Yes Hx Incontinence: Yes (" I stopped taking Lasix for 2 days now") - PSYCHIATRIC Hx Psychophysiologic Disorder: Yes Hx Anxiety: Yes Hx Substance Use: No - SURGICAL HISTORY Hx Surgeries: Yes Hx Appendectomy: Yes - ANESTHESIA Hx Anesthesia: Yes Hx Anesthesia Reactions: No Hx Malignant Hyperthermia: No Has any member of the family had a problem w/ anesthesia?: No Meds Allergies/Adverse Reactions: Allergies Allergy/AdvReac Type Severity Reaction Status Date / Time No Known Allergies Allergy Verified 07/14/17 18:43 Results - Vital Signs Recent Vital Signs: Last Vital Signs Temp 98.2 F 08/02/17 15:38 Pulse 93 H 08/02/17 16:00 Resp 18 08/02/17 15:38 BP 134/66 08/02/17 15:38 Pulse Ox 95 08/02/17 15:38 - Labs Result Diagrams: 08/02/17 10:51 08/02/17 10:51 Labs: Laboratory Results - last 24 hr 08/02/17 08/02/17 10:51 10:51 WBC 5.6 RBC 3.55 L Hgb 11.1 Hct 32.9 L MCV 92.5 MCH 31.3 H MCHC 33.8 RDW 14.9 H Plt Count 297 MPV 8.0 Neut % (Auto) 65.2 Lymph % (Auto) 23.6 Hardin % (Auto) 8.0 Eos % (Auto) 2.2 Baso % (Auto) 1.0 Neut # (Auto) 3.7 Lymph # (Auto) 1.3 Hardin # (Auto) 0.4 Eos # (Auto) 0.1 Baso # (Auto) 0.1 Sodium 141 Potassium 3.8 Chloride 100 Carbon Dioxide 28 Anion Gap 16 BUN 13 Creatinine 0.9 Est GFR ( Amer) > 60 Est GFR (Non-Af Amer) 59 Random Glucose 109 H Calcium 9.4 Total Bilirubin 0.9 AST 30 ALT 22 Alkaline Phosphatase 200 H Total Protein 6.8 Albumin 3.3 L Globulin 3.4 Albumin/Globulin Ratio 1.0
--- NOTE | 2017-08-02 19:24 | CARD ---
APPROVED REPORT EKG Measurement Heart [id number] <Conclusion> Atrial fibrillation Left axis deviation Minimal voltage criteria for LVH, may be normal variant Possible Anterior infarct, age undetermined Abnormal ECG
[2017-08-03 08:25] LABS: BASO % 0.5 % (0.0-2.0); EOS # 0.1 K/uL (0.0-0.7); EOS % 1.9 % (0.0-4.0); HEMOGLOBIN 10.7 g/dL (11.0-16.0); LYMPH # 1.4 K/uL (1.0-4.3); LYMPH % 20.5 % (20.0-40.0); MEAN CELL VOLUME 91.7 fL (81.0-99.0); MEAN CORPUSCULAR HEMOGLOBIN 31.7 pg (27.0-31.0); MEAN CORPUSCULAR HGB CONC 34.6 g/dL (33.0-37.0); MEAN PLATELET VOLUME 8.1 fL (7.2-11.7); MONO # 0.6 K/uL (0.0-0.8); MONO % 8.4 % (0.0-10.0); NEUT # 4.6 K/uL (1.8-7.0); NEUT % 68.7 % (50.0-75.0); RBC 3.38 Mil/uL (3.80-5.20); RED CELL DISTRIBUTION WIDTH 14.8 % (11.5-14.5); WHITE BLOOD COUNT 6.8 K/uL (4.8-10.8)
[2017-08-03 08:59] LABS: ALB/GLOB RATIO 0.9 (1.0-2.1); ALBUMIN 3.1 g/dL (3.5-5.0); ALT/SGPT 16 U/L (9-52); AST/SGOT 28 U/L (14-36); BLOOD UREA NITROGEN 14 mg/dL (7-17); CALCIUM 8.9 mg/dl (8.6-10.4); GFR AFRICAN-AMERICAN > 60; GFR NON-AFRICAN AMERICAN 59
[2017-08-03] MEDS: Metoprolol Succinate 50 mg XL Tab PO SCH (09:33)
[2017-08-03] MEDS: Pantoprazole 40 mg EC Tab PO SCH (09:34)
[2017-08-03] MEDS: Lidocaine 5% Patch TD SCH (09:34)
[2017-08-04] MEDS: Pantoprazole 40 mg EC Tab PO SCH (10:04)
[2017-08-04] MEDS: Metoprolol Succinate 50 mg XL Tab PO SCH (10:04)
[2017-08-04] MEDS: Lidocaine 5% Patch TD SCH (10:04)
[2017-08-05] MEDS: Metoprolol Succinate 50 mg XL Tab PO SCH (09:21)
[2017-08-05] MEDS: Lidocaine 5% Patch TD SCH (09:21)
[2017-08-05] MEDS: Pantoprazole 40 mg EC Tab PO SCH (09:21)
--- NOTE | 2017-08-05 12:27 | RAD ---
HISTORY: shortness of breath COMPARISON: Chest radiograph dated 07/31/2017. FINDINGS: LUNGS: Stable chronic prominence of the bilateral interstitial markings. Stable patchy bibasilar opacities. PLEURA: No significant pleural effusion identified, no pneumothorax apparent. CARDIOVASCULAR: Left subclavian access to lead pacemaker redemonstrated. Cardiac loop recorder redemonstrated. Atherosclerotic aortic calcifications. Cardiomediastinal silhouette stably enlarged. OSSEOUS STRUCTURES: Unchanged. VISUALIZED UPPER ABDOMEN: Normal. OTHER FINDINGS: None. IMPRESSION: Stable patchy bibasilar opacities.
[2017-08-05] MEDS ORDERED: Albuterol-Ipratrop 3 mg / 0.5 (3 ml) UD INH STA (12:37)
[2017-08-05] MEDS: diltiaZEM 120 mg/24 Hours CD Cap PO SCH (14:28)
[2017-08-05] MEDS: Albuterol-Ipratrop 3 mg / 0.5 (3 ml) UD INH SCH (16:01)
[2017-08-05 16:07] LABS: BASO # 0.1 K/uL (0.0-0.2); BASO % 0.8 % (0.0-2.0); EOS # 0.1 K/uL (0.0-0.7); EOS % 1.3 % (0.0-4.0); HEMOGLOBIN 10.9 g/dL (11.0-16.0); LYMPH # 1.1 K/uL (1.0-4.3); LYMPH % 15.6 % (20.0-40.0); MEAN CELL VOLUME 91.7 fL (81.0-99.0); MEAN CORPUSCULAR HEMOGLOBIN 31.1 pg (27.0-31.0); MEAN CORPUSCULAR HGB CONC 33.9 g/dL (33.0-37.0); MEAN PLATELET VOLUME 8.6 fL (7.2-11.7); MONO # 0.6 K/uL (0.0-0.8); MONO % 8.8 % (0.0-10.0); NEUT # 5.1 K/uL (1.8-7.0); NEUT % 73.5 % (50.0-75.0); RBC 3.52 Mil/uL (3.80-5.20); RED CELL DISTRIBUTION WIDTH 14.7 % (11.5-14.5); WHITE BLOOD COUNT 6.9 K/uL (4.8-10.8)
[2017-08-05 16:26] LABS: ALB/GLOB RATIO 0.9 (1.0-2.1); ALBUMIN 3.2 g/dL (3.5-5.0); ALT/SGPT < 6 U/L (9-52); AST/SGOT 79 U/L (14-36); BLOOD UREA NITROGEN 16 mg/dL (7-17); CALCIUM 8.8 mg/dl (8.6-10.4); GFR AFRICAN-AMERICAN > 60; GFR NON-AFRICAN AMERICAN > 60
[2017-08-06] MEDS: Albuterol-Ipratrop 3 mg / 0.5 (3 ml) UD INH SCH ×3 (01:21→16:15)
[2017-08-06] MEDS: Pantoprazole 40 mg EC Tab PO SCH (09:19)
[2017-08-06] MEDS: diltiaZEM 120 mg/24 Hours CD Cap PO SCH (09:19)
[2017-08-06] MEDS: Metoprolol Succinate 50 mg XL Tab PO SCH (09:19)
[2017-08-06] MEDS: Lidocaine 5% Patch TD SCH (09:19)
[2017-08-07] MEDS: Albuterol-Ipratrop 3 mg / 0.5 (3 ml) UD INH SCH ×3 (01:02→15:45)
[2017-08-07] MEDS: Lidocaine 5% Patch TD SCH (09:18)
[2017-08-07] MEDS: Pantoprazole 40 mg EC Tab PO SCH (09:18)
[2017-08-07] MEDS: diltiaZEM 120 mg/24 Hours CD Cap PO SCH (09:18)
[2017-08-07] MEDS: Metoprolol Succinate 50 mg XL Tab PO SCH (09:18)
[2017-08-07] MEDS ORDERED: Promethazine 6.25 MG/5 ML CUP PO ONE (17:10)
--- NOTE | 2017-08-07 17:13 | CP.PCM.PN ---
Subjective - Date & Time of Evaluation Date of Evaluation: 08/03/17 Time of Evaluation: 17:11 - Subjective Subjective: Patient today feeling well. I spoke to the patient's son. She is not eating well. Because present. Still drowsy. But more awake than before. Vital signs stable. Chest good air entry. Regular. NONTENDER ABDOMEN. PEDAL EDEMA MILD EXERTIONAL DYSPNEA NOTED ASSESSMENT AND RECOMMENDATION: 89-YEAR-OLD FEMALE WITH A HISTORY OF ATRIAL FIBRILLATION, PACEMAKER, ON ANTICOAGULATION ADMITTED WITH WEAKNESS, DEHYDRATION. PATIENT RECENTLY HAD A GI BLEED, HOSPITALIZED RECENTLY TO BLOOD TRANSFUSION. WEAKNESS. LUMBAR VERTEBRAL FRACTURE, BUT NO FALL NOTED. CURRENTLY OFF ANTI-COAGULATION, PROBABLY WILL NEED TO START AND WILL FOLLOW-UP THE PATIENT Objective - Vital Signs/Intake and Output Vital Signs (last 24 hours): Temp Pulse Resp BP Pulse Ox 97.8 F 62 22 133/76 97 08/07/17 15:00 08/07/17 15:36 08/07/17 15:00 08/07/17 15:00 08/07/17 15:00 - Medications Medications: Current Medications Acetaminophen (Tylenol 325mg Tab) 650 mg PO Q4H PRN PRN Reason: Temperature Albuterol/Ipratropium (Duoneb 3 Mg/0.5 Mg (3 Ml) Ud) 3 ml INH RQ8 [facility] Last Admin: 08/07/17 15:45 Dose: 3 ml Alprazolam (Xanax) 0.25 mg PO HS [facility] Last Admin: 08/01/17 21:27 Dose: Not Given Apixaban (Eliquis) 2.5 mg PO Q12 [facility] Last Admin: 08/07/17 09:18 Dose: 2.5 mg Diltiazem HCl (Cardizem Cd) 120 mg PO DAILY [facility] Last Admin: 08/07/17 09:18 Dose: 120 mg Ceftriaxone Sodium 1 gm/ (Sodium Chloride) 100 mls @ 100 mls/hr IVPB DAILY [facility] PRN Reason: Protocol Lidocaine (Lidoderm) 1 ea TD DAILY [facility] Last Admin: 08/07/17 09:18 Dose: 1 ea Metoprolol Succinate (Toprol Xl) 50 mg PO DAILY [facility] Last Admin: 08/07/17 09:18 Dose: 50 mg Pantoprazole Sodium (Protonix Ec Tab) 40 mg PO DAILY [facility] Last Admin: 08/07/17 09:18 Dose: 40 mg Promethazine HCl (Phenergan Syrup) 6.25 mg PO ONCE ONE Stop: 08/07/17 17:11 Rosuvastatin Calcium (Crestor) 10 mg PO [facility] Last Admin: 08/06/17 22:18 Dose: 10 mg Vitamin B Complex/Folic Acid (Berroca) 1 tab PO DAILY [facility] Last Admin: 08/07/17 09:18 Dose: 1 tab - Labs Labs: 08/05/17 16:00 08/05/17 16:00 PT 11.5 SECONDS (9.7-12.2) 07/31/17 23:08 INR 1.0 07/31/17 23:08 APTT 29 SECONDS (21-34) 07/31/17 23:08
--- NOTE | 2017-08-07 17:14 | CP.PCM.PN ---
Subjective - Date & Time of Evaluation Date of Evaluation: 08/04/17 Time of Evaluation: 17:13 - Subjective Subjective: Patient today feeling well. I spoke to the patient's son. She is not eating well. Because present. Still drowsy. But more awake than before. Vital signs stable. Chest good air entry. Regular. NONTENDER ABDOMEN. PEDAL EDEMA MILD EXERTIONAL DYSPNEA NOTED ASSESSMENT AND RECOMMENDATION: 89-YEAR-OLD FEMALE WITH A HISTORY OF ATRIAL FIBRILLATION, PACEMAKER, ON ANTICOAGULATION ADMITTED WITH WEAKNESS, DEHYDRATION. PATIENT RECENTLY HAD A GI BLEED, HOSPITALIZED RECENTLY TO BLOOD TRANSFUSION. WEAKNESS. LUMBAR VERTEBRAL FRACTURE, BUT NO FALL NOTED. CURRENTLY OFF ANTI-COAGULATION, PROBABLY WILL NEED TO START AND WILL FOLLOW-UP THE PATIENT Objective - Vital Signs/Intake and Output Vital Signs (last 24 hours): Temp Pulse Resp BP Pulse Ox 97.8 F 62 22 133/76 97 08/07/17 15:00 08/07/17 15:36 08/07/17 15:00 08/07/17 15:00 08/07/17 15:00 - Medications Medications: Current Medications Acetaminophen (Tylenol 325mg Tab) 650 mg PO Q4H PRN PRN Reason: Temperature Albuterol/Ipratropium (Duoneb 3 Mg/0.5 Mg (3 Ml) Ud) 3 ml INH RQ8 [facility] Last Admin: 08/07/17 15:45 Dose: 3 ml Alprazolam (Xanax) 0.25 mg PO HS [facility] Last Admin: 08/01/17 21:27 Dose: Not Given Apixaban (Eliquis) 2.5 mg PO Q12 [facility] Last Admin: 08/07/17 09:18 Dose: 2.5 mg Diltiazem HCl (Cardizem Cd) 120 mg PO DAILY [facility] Last Admin: 08/07/17 09:18 Dose: 120 mg Ceftriaxone Sodium 1 gm/ (Sodium Chloride) 100 mls @ 100 mls/hr IVPB DAILY [facility] PRN Reason: Protocol Azithromycin 500 mg/ Sodium (Chloride) 250 mls @ 250 mls/hr IVPB Q24H [facility] PRN Reason: Protocol Lidocaine (Lidoderm) 1 ea TD DAILY [facility] Last Admin: 08/07/17 09:18 Dose: 1 ea Metoprolol Succinate (Toprol Xl) 50 mg PO DAILY [facility] Last Admin: 08/07/17 09:18 Dose: 50 mg Pantoprazole Sodium (Protonix Ec Tab) 40 mg PO DAILY [facility] Last Admin: 08/07/17 09:18 Dose: 40 mg Rosuvastatin Calcium (Crestor) 10 mg PO HS [facility] Last Admin: 08/06/17 22:18 Dose: 10 mg Vitamin B Complex/Folic Acid (Berroca) 1 tab PO DAILY [facility] Last Admin: 08/07/17 09:18 Dose: 1 tab - Labs Labs: 08/05/17 16:00 08/05/17 16:00 PT 11.5 SECONDS (9.7-12.2) 07/31/17 23:08 INR 1.0 07/31/17 23:08 APTT 29 SECONDS (21-34) 07/31/17 23:08
--- NOTE | 2017-08-07 17:15 | CP.PCM.PN ---
Subjective - Date & Time of Evaluation Date of Evaluation: 08/05/17 Time of Evaluation: 17:14 - Subjective Subjective: Patient had an episode of respiratory distress. Started on a place. X-ray chest is showing no acute infiltrate. Our patient has an exertional dyspnea. Cough noted. Patient is eating very poorly, difficulty in swallowing occasionally noted Vital signs stable. Chest good air entry. Regular. Abdomen soft nontender no pedal edema He is moving the legs. Chest x-ray is no acute infiltrate ASSESSMENT AND RECOMMENDATION: 89-YEAR-OLD FEMALE WITH A HISTORY OF ATRIAL FIBRILLATION, PACEMAKER, ON ANTICOAGULATION ADMITTED WITH WEAKNESS, DEHYDRATION. Most likely patient has also possible acute on chronic bronchitis. We'll start the patient unable laser. No antibiotic at this time. Will closely monitor. Will follow the patient. Objective - Vital Signs/Intake and Output Vital Signs (last 24 hours): Temp Pulse Resp BP Pulse Ox 97.8 F 62 22 133/76 97 08/07/17 15:00 08/07/17 15:36 08/07/17 15:00 08/07/17 15:00 08/07/17 15:00 - Medications Medications: Current Medications Acetaminophen (Tylenol 325mg Tab) 650 mg PO Q4H PRN PRN Reason: Temperature Albuterol/Ipratropium (Duoneb 3 Mg/0.5 Mg (3 Ml) Ud) 3 ml INH RQ8 [facility] Last Admin: 08/07/17 15:45 Dose: 3 ml Alprazolam (Xanax) 0.25 mg PO HS [facility] Last Admin: 08/01/17 21:27 Dose: Not Given Apixaban (Eliquis) 2.5 mg PO Q12 [facility] Last Admin: 08/07/17 09:18 Dose: 2.5 mg Diltiazem HCl (Cardizem Cd) 120 mg PO DAILY [facility] Last Admin: 08/07/17 09:18 Dose: 120 mg Ceftriaxone Sodium 1 gm/ (Sodium Chloride) 100 mls @ 100 mls/hr IVPB DAILY [facility] PRN Reason: Protocol Azithromycin 500 mg/ Sodium (Chloride) 250 mls @ 166.667 mls/hr IVPB Q24H [facility] PRN Reason: Protocol Lidocaine (Lidoderm) 1 ea TD DAILY [facility] Last Admin: 08/07/17 09:18 Dose: 1 ea Metoprolol Succinate (Toprol Xl) 50 mg PO DAILY [facility] Last Admin: 08/07/17 09:18 Dose: 50 mg Pantoprazole Sodium (Protonix Ec Tab) 40 mg PO DAILY [facility] Last Admin: 08/07/17 09:18 Dose: 40 mg Rosuvastatin Calcium (Crestor) 10 mg PO HS [facility] Last Admin: 08/06/17 22:18 Dose: 10 mg Vitamin B Complex/Folic Acid (Berroca) 1 tab PO DAILY [facility] Last Admin: 08/07/17 09:18 Dose: 1 tab - Labs Labs: 08/05/17 16:00 08/05/17 16:00 PT 11.5 SECONDS (9.7-12.2) 07/31/17 23:08 INR 1.0 07/31/17 23:08 APTT 29 SECONDS (21-34) 07/31/17 23:08
--- NOTE | 2017-08-07 17:17 | CP.PCM.PN ---
Subjective - Date & Time of Evaluation Date of Evaluation: 08/06/17 Time of Evaluation: 17:15 - Subjective Subjective: Less respiratory distress Today feeling much better than yesterday. son at bedside. Spoke to him. She eating okay, better than yesterday. Vital signs stable. Chest good air entry. Regular. Abdomen soft nontender no pedal edema He is moving the legs. ASSESSMENT AND RECOMMENDATION: 89-YEAR-OLD FEMALE WITH A HISTORY OF ATRIAL FIBRILLATION, PACEMAKER, ON ANTICOAGULATION ADMITTED WITH WEAKNESS, DEHYDRATION. Most likely patient has also possible acute on chronic bronchitis. Patient is currently on intravenous Solu-Medrol. Continue the bronchodilator Physical therapy. Fall precautions. Anxiety, continue the Xanax as needed. Will follow-up the patient Objective - Vital Signs/Intake and Output Vital Signs (last 24 hours): Temp Pulse Resp BP Pulse Ox 97.8 F 62 22 133/76 97 08/07/17 15:00 08/07/17 15:36 08/07/17 15:00 08/07/17 15:00 08/07/17 15:00 - Medications Medications: Current Medications Acetaminophen (Tylenol 325mg Tab) 650 mg PO Q4H PRN PRN Reason: Temperature Albuterol/Ipratropium (Duoneb 3 Mg/0.5 Mg (3 Ml) Ud) 3 ml INH RQ8 [facility] Last Admin: 08/07/17 15:45 Dose: 3 ml Alprazolam (Xanax) 0.25 mg PO HS [facility] Last Admin: 08/01/17 21:27 Dose: Not Given Apixaban (Eliquis) 2.5 mg PO Q12 [facility] Last Admin: 08/07/17 09:18 Dose: 2.5 mg Diltiazem HCl (Cardizem Cd) 120 mg PO DAILY [facility] Last Admin: 08/07/17 09:18 Dose: 120 mg Ceftriaxone Sodium 1 gm/ (Sodium Chloride) 100 mls @ 100 mls/hr IVPB DAILY [facility] PRN Reason: Protocol Azithromycin 500 mg/ Sodium (Chloride) 250 mls @ 166.667 mls/hr IVPB Q24H [facility] PRN Reason: Protocol Lidocaine (Lidoderm) 1 ea TD DAILY [facility] Last Admin: 08/07/17 09:18 Dose: 1 ea Metoprolol Succinate (Toprol Xl) 50 mg PO DAILY [facility] Last Admin: 08/07/17 09:18 Dose: 50 mg Pantoprazole Sodium (Protonix Ec Tab) 40 mg PO DAILY [facility] Last Admin: 08/07/17 09:18 Dose: 40 mg Rosuvastatin Calcium (Crestor) 10 mg PO HS [facility] Last Admin: 08/06/17 22:18 Dose: 10 mg Vitamin B Complex/Folic Acid (Berroca) 1 tab PO DAILY [facility] Last Admin: 08/07/17 09:18 Dose: 1 tab - Labs Labs: 08/05/17 16:00 08/05/17 16:00 PT 11.5 SECONDS (9.7-12.2) 07/31/17 23:08 INR 1.0 07/31/17 23:08 APTT 29 SECONDS (21-34) 07/31/17 23:08
--- NOTE | 2017-08-07 17:18 | CP.PCM.PN ---
Subjective - Date & Time of Evaluation Date of Evaluation: 08/07/17 Time of Evaluation: 17:17 - Subjective Subjective: Last night patient had an episode of anxiety attack. The nurse called the patient's son, who came to see her last night. Patient did not sleep well last night. He is concerned about not having sleep. Today morning she has increasing coughing episodes. Very thick mucus noted occasionally. Vital signs stable. Chest good air entry. Regular. Abdomen soft nontender no pedal edema He is moving the legs. ASSESSMENT AND RECOMMENDATION: 89-YEAR-OLD FEMALE WITH A HISTORY OF ATRIAL FIBRILLATION, PACEMAKER, ON ANTICOAGULATION ADMITTED WITH WEAKNESS, DEHYDRATION. Most likely patient has also possible acute on chronic bronchitis. Possible acute exacerbation of bronchitis I suggested to add antibiotic today Bronchodilators Cough medication Physical therapy Objective - Vital Signs/Intake and Output Vital Signs (last 24 hours): Temp Pulse Resp BP Pulse Ox 97.8 F 62 22 133/76 97 08/07/17 15:00 08/07/17 15:36 08/07/17 15:00 08/07/17 15:00 08/07/17 15:00 - Medications Medications: Current Medications Acetaminophen (Tylenol 325mg Tab) 650 mg PO Q4H PRN PRN Reason: Temperature Albuterol/Ipratropium (Duoneb 3 Mg/0.5 Mg (3 Ml) Ud) 3 ml INH RQ8 [facility] Last Admin: 08/07/17 15:45 Dose: 3 ml Alprazolam (Xanax) 0.25 mg PO HS [facility] Last Admin: 08/01/17 21:27 Dose: Not Given Apixaban (Eliquis) 2.5 mg PO Q12 [facility] Last Admin: 08/07/17 09:18 Dose: 2.5 mg Diltiazem HCl (Cardizem Cd) 120 mg PO DAILY [facility] Last Admin: 08/07/17 09:18 Dose: 120 mg Ceftriaxone Sodium 1 gm/ (Sodium Chloride) 100 mls @ 100 mls/hr IVPB DAILY [facility] PRN Reason: Protocol Azithromycin 500 mg/ Sodium (Chloride) 250 mls @ 166.667 mls/hr IVPB Q24H [facility] PRN Reason: Protocol Lidocaine (Lidoderm) 1 ea TD DAILY [facility] Last Admin: 08/07/17 09:18 Dose: 1 ea Metoprolol Succinate (Toprol Xl) 50 mg PO DAILY [facility] Last Admin: 08/07/17 09:18 Dose: 50 mg Pantoprazole Sodium (Protonix Ec Tab) 40 mg PO DAILY [facility] Last Admin: 08/07/17 09:18 Dose: 40 mg Rosuvastatin Calcium (Crestor) 10 mg PO HS [facility] Last Admin: 08/06/17 22:18 Dose: 10 mg Vitamin B Complex/Folic Acid (Berroca) 1 tab PO DAILY [facility] Last Admin: 08/07/17 09:18 Dose: 1 tab - Labs Labs: 08/05/17 16:00 08/05/17 16:00 PT 11.5 SECONDS (9.7-12.2) 07/31/17 23:08 INR 1.0 07/31/17 23:08 APTT 29 SECONDS (21-34) 07/31/17 23:08
[2017-08-07] MEDS: Azithromycin 500 MG in Sodium Chloride 0.9% 250 ML IVPB SCH (18:29)
[2017-08-07] MEDS: MethylPREDNISolone 40 mg Vial IVP SCH (21:52)
[2017-08-08] MEDS: Albuterol-Ipratrop 3 mg / 0.5 (3 ml) UD INH SCH ×4 (01:24→23:54)
[2017-08-08 08:01] LABS: BASO % 0.1 % (0.0-2.0); HEMOGLOBIN 11.2 g/dL (11.0-16.0); LYMPH # 0.4 K/uL (1.0-4.3); LYMPH % 5.5 % (20.0-40.0); MEAN CELL VOLUME 91.8 fL (81.0-99.0); MEAN CORPUSCULAR HEMOGLOBIN 30.9 pg (27.0-31.0); MEAN CORPUSCULAR HGB CONC 33.7 g/dL (33.0-37.0); MONO # 0.1 K/uL (0.0-0.8); MONO % 1.4 % (0.0-10.0); NEUT # 7.5 K/uL (1.8-7.0); PLATELET COUNT 173 K/uL (130-400); RBC 3.62 Mil/uL (3.80-5.20); RED CELL DISTRIBUTION WIDTH 15.1 % (11.5-14.5); WHITE BLOOD COUNT 8.1 K/uL (4.8-10.8)
[2017-08-08 08:19] LABS: ALB/GLOB RATIO 0.9 (1.0-2.1); ALBUMIN 3.4 g/dL (3.5-5.0); ALT/SGPT 16 U/L (9-52); AST/SGOT 29 U/L (14-36); BLOOD UREA NITROGEN 14 mg/dL (7-17); CALCIUM 9.5 mg/dl (8.6-10.4); GFR AFRICAN-AMERICAN > 60; GFR NON-AFRICAN AMERICAN > 60
[2017-08-08 08:39] LABS: BANDS 3 % (0-2); LYMPHOCYTE 2 % (20-40); MONOCYTE 1 % (0-10); NEUTROPHIL 94 % (50-75); PLATELET ESTIMATE NORMAL (NORMAL); TOTAL CELLS COUNTED 100
[2017-08-08 08:40] LABS: ANISOCYTOSIS SLIGHT
[2017-08-08] MEDS: Pantoprazole 40 mg EC Tab PO SCH (11:06)
[2017-08-08] MEDS: MethylPREDNISolone 40 mg Vial IVP SCH ×2 (11:06→21:20)
[2017-08-08] MEDS: Lidocaine 5% Patch TD SCH (11:06)
[2017-08-08] MEDS: Metoprolol Succinate 50 mg XL Tab PO SCH (11:06)
[2017-08-08] MEDS: diltiaZEM 120 mg/24 Hours CD Cap PO SCH (11:07)
[2017-08-08] MEDS: Azithromycin 500 MG in Sodium Chloride 0.9% 250 ML IVPB SCH (17:18)
--- NOTE | 2017-08-09 07:54 | CP.PCM.PN ---
Subjective - Date & Time of Evaluation Date of Evaluation: 08/08/17 Time of Evaluation: 07:54 - Subjective Subjective: patient is a having episodes of cough. Shortness of breath also noted Patient's son is very upset Patient is mostly bedridden Patient started on oral anticoagulation, she is at high risk for GI bleed Patient recently had transfusion following GI bleed Vital signs reviewed Chest wheezing X-ray chest is showing basilar atelectasis On antibiotic, and steroid Patient with atrial fibrillation complicated with anticoagulation-induced GI bleed Currently closely monitored Patient is also in acute respiratory distress, COPD exacerbation needing bronchodilators, intravenous steroid, antibiotic GI prophylaxis patient needs subacute rehabilitation physical therapy Objective - Vital Signs/Intake and Output Vital Signs (last 24 hours): Temp Pulse Resp BP Pulse Ox 97.3 F L 81 18 162/88 H 98 08/09/17 07:40 08/09/17 07:40 08/09/17 07:40 08/09/17 07:40 08/09/17 07:40 Intake and Output: 08/09/17 08/09/17 06:59 18:59 Intake Total 100 Output Total 400 Balance -300 - Medications Medications: Current Medications Acetaminophen (Tylenol 325mg Tab) 650 mg PO Q4H PRN PRN Reason: Temperature Albuterol/Ipratropium (Duoneb 3 Mg/0.5 Mg (3 Ml) Ud) 3 ml INH RQ8 [facility] Last Admin: 08/08/17 23:54 Dose: Not Given Alprazolam (Xanax) 0.25 mg PO HS [facility] Last Admin: 08/08/17 21:21 Dose: 0.25 mg Apixaban (Eliquis) 2.5 mg PO Q12 [facility] Last Admin: 08/08/17 21:21 Dose: 2.5 mg Diltiazem HCl (Cardizem Cd) 120 mg PO DAILY [facility] Last Admin: 08/08/17 11:07 Dose: 120 mg Ceftriaxone Sodium 1 gm/ (Sodium Chloride) 100 mls @ 100 mls/hr IVPB DAILY [facility] PRN Reason: Protocol Last Admin: 08/08/17 11:07 Dose: 100 mls/hr Azithromycin 500 mg/ Sodium (Chloride) 250 mls @ 166.667 mls/hr IVPB Q24H [facility] PRN Reason: Protocol Last Admin: 08/08/17 17:18 Dose: 166.667 mls/hr Lidocaine (Lidoderm) 1 ea TD DAILY [facility] Last Admin: 08/08/17 11:06 Dose: 1 ea Methylprednisolone (Solu-Medrol) 20 mg IVP Q12 [facility] Stop: 08/10/17 22:01 Last Admin: 08/08/17 21:20 Dose: 20 mg Metoprolol Succinate (Toprol Xl) 50 mg PO DAILY [facility] Last Admin: 08/08/17 11:06 Dose: 50 mg Pantoprazole Sodium (Protonix Ec Tab) 40 mg PO DAILY [facility] Last Admin: 08/08/17 11:06 Dose: 40 mg Rosuvastatin Calcium (Crestor) 10 mg PO HS [facility] Last Admin: 08/08/17 21:21 Dose: 10 mg Vitamin B Complex/Folic Acid (Berroca) 1 tab PO DAILY [facility] Last Admin: 08/08/17 11:06 Dose: 1 tab - Labs Labs: 08/08/17 07:48 08/08/17 07:48 PT 11.5 SECONDS (9.7-12.2) 07/31/17 23:08 INR 1.0 07/31/17 23:08 APTT 29 SECONDS (21-34) 07/31/17 23:08
--- NOTE | 2017-08-09 07:54 | CP.PCM.PN ---
Subjective - Date & Time of Evaluation Date of Evaluation: 08/09/17 Time of Evaluation: 07:54 - Subjective Subjective: patient is a having episodes of cough. Shortness of breath also noted Patient's son is very upset Patient is mostly bedridden Patient started on oral anticoagulation, she is at high risk for GI bleed Patient recently had transfusion following GI bleed Vital signs reviewed Chest wheezing X-ray chest is showing basilar atelectasis On antibiotic, and steroid Patient with atrial fibrillation complicated with anticoagulation-induced GI bleed Currently closely monitored Patient is also in acute respiratory distress, COPD exacerbation needing bronchodilators, intravenous steroid, antibiotic GI prophylaxis patient needs subacute rehabilitation physical therapy Objective - Vital Signs/Intake and Output Vital Signs (last 24 hours): Temp Pulse Resp BP Pulse Ox 97.3 F L 81 18 162/88 H 98 08/09/17 07:40 08/09/17 07:40 08/09/17 07:40 08/09/17 07:40 08/09/17 07:40 Intake and Output: 08/09/17 08/09/17 06:59 18:59 Intake Total 100 Output Total 400 Balance -300 - Medications Medications: Current Medications Acetaminophen (Tylenol 325mg Tab) 650 mg PO Q4H PRN PRN Reason: Temperature Albuterol/Ipratropium (Duoneb 3 Mg/0.5 Mg (3 Ml) Ud) 3 ml INH RQ8 [facility] Last Admin: 08/08/17 23:54 Dose: Not Given Alprazolam (Xanax) 0.25 mg PO HS [facility] Last Admin: 08/08/17 21:21 Dose: 0.25 mg Apixaban (Eliquis) 2.5 mg PO Q12 [facility] Last Admin: 08/08/17 21:21 Dose: 2.5 mg Diltiazem HCl (Cardizem Cd) 120 mg PO DAILY [facility] Last Admin: 08/08/17 11:07 Dose: 120 mg Ceftriaxone Sodium 1 gm/ (Sodium Chloride) 100 mls @ 100 mls/hr IVPB DAILY [facility] PRN Reason: Protocol Last Admin: 08/08/17 11:07 Dose: 100 mls/hr Azithromycin 500 mg/ Sodium (Chloride) 250 mls @ 166.667 mls/hr IVPB Q24H [facility] PRN Reason: Protocol Last Admin: 08/08/17 17:18 Dose: 166.667 mls/hr Lidocaine (Lidoderm) 1 ea TD DAILY [facility] Last Admin: 08/08/17 11:06 Dose: 1 ea Methylprednisolone (Solu-Medrol) 20 mg IVP Q12 [facility] Stop: 08/10/17 22:01 Last Admin: 08/08/17 21:20 Dose: 20 mg Metoprolol Succinate (Toprol Xl) 50 mg PO DAILY [facility] Last Admin: 08/08/17 11:06 Dose: 50 mg Pantoprazole Sodium (Protonix Ec Tab) 40 mg PO DAILY [facility] Last Admin: 08/08/17 11:06 Dose: 40 mg Rosuvastatin Calcium (Crestor) 10 mg PO HS [facility] Last Admin: 08/08/17 21:21 Dose: 10 mg Vitamin B Complex/Folic Acid (Berroca) 1 tab PO DAILY [facility] Last Admin: 08/08/17 11:06 Dose: 1 tab - Labs Labs: 08/08/17 07:48 08/08/17 07:48 PT 11.5 SECONDS (9.7-12.2) 07/31/17 23:08 INR 1.0 07/31/17 23:08 APTT 29 SECONDS (21-34) 07/31/17 23:08
[2017-08-09] MEDS: Albuterol-Ipratrop 3 mg / 0.5 (3 ml) UD INH SCH ×2 (08:23→16:15)
[2017-08-09] MEDS: diltiaZEM 120 mg/24 Hours CD Cap PO SCH (10:04)
[2017-08-09] MEDS: Lidocaine 5% Patch TD SCH (10:05)
[2017-08-09] MEDS: Pantoprazole 40 mg EC Tab PO SCH (10:05)
[2017-08-09] MEDS: Metoprolol Succinate 50 mg XL Tab PO SCH (10:05)
[2017-08-09] MEDS: MethylPREDNISolone 40 mg Vial IVP SCH ×2 (10:22→21:06)
[2017-08-09] MEDS: Azithromycin 500 MG in Sodium Chloride 0.9% 250 ML IVPB SCH (17:17)
[2017-08-10] MEDS: Albuterol-Ipratrop 3 mg / 0.5 (3 ml) UD INH SCH ×3 (01:02→15:46)
[2017-08-10] MEDS: MethylPREDNISolone 40 mg Vial IVP SCH ×2 (10:33→21:12)
[2017-08-10] MEDS: Metoprolol Succinate 50 mg XL Tab PO SCH (10:34)
[2017-08-10] MEDS: diltiaZEM 120 mg/24 Hours CD Cap PO SCH (10:34)
[2017-08-10] MEDS: Pantoprazole 40 mg EC Tab PO SCH (10:34)
[2017-08-10] MEDS: Lidocaine 5% Patch TD SCH (10:35)
[2017-08-10] MEDS: Azithromycin 500 MG in Sodium Chloride 0.9% 250 ML IVPB SCH (17:35)
[2017-08-11] MEDS: Albuterol-Ipratrop 3 mg / 0.5 (3 ml) UD INH SCH ×3 (01:49→15:27)
[2017-08-11] MEDS: Metoprolol Succinate 50 mg XL Tab PO SCH (10:11)
[2017-08-11] MEDS: Lidocaine 5% Patch TD SCH (10:11)
[2017-08-11] MEDS: diltiaZEM 120 mg/24 Hours CD Cap PO SCH (10:11)
[2017-08-11] MEDS: Pantoprazole 40 mg EC Tab PO SCH (10:11)
--- NOTE | 2017-08-11 11:19 | RAD ---
HISTORY: right upper chest and shoulder pain COMPARISON: Chest x-ray 08/05/2017 TECHNIQUE: Chest one view . FINDINGS: LUNGS: Mild pulmonary vascular congestion. PLEURA: No pleural effusion is identified. CARDIOVASCULAR: Heart size is mildly enlarged.There is a 2-lead left-sided pacemaker/AICD with leads overlying the regions of the right atrium and right ventricle. Atherosclerotic calcifications noted of the aorta. Cardiac loop recording recorder noted. OSSEOUS STRUCTURES: No acute fracture identified. VISUALIZED UPPER ABDOMEN: Unremarkable. OTHER FINDINGS: None. IMPRESSION: Mild pulmonary vascular congestion.
--- NOTE | 2017-08-11 11:21 | RAD ---
PROCEDURE: Radiographs of the Right Shoulder HISTORY: pain COMPARISON: No prior. FINDINGS: BONES: No fracture identified. Bones are demineralized. JOINTS: No dislocation seen. Humeral head articulation with the glenoid is maintained. Acromioclavicular joint is unremarkable. SOFT TISSUES: Unremarkable OTHER FINDINGS: Visualized lung haywood demonstrate mild vascular congestion. IMPRESSION: No fracture or dislocation identified. Additional findings as above.
[2017-08-11] MEDS ORDERED: Albuterol-Ipratrop 3 mg / 0.5 (3 ml) UD INH STA (11:27)
--- NOTE | 2017-08-11 23:07 | CP.PCM.PN ---
Subjective - Date & Time of Evaluation Date of Evaluation: 08/10/17 Time of Evaluation: 08:00 - Subjective Subjective: Slight improvement noted, less cough noted, denies any nausea. Eating slightly better Having BM But mostly bedridden Vital signs stable. Chest good air entry irregular. Nontender abdomen No pedal edema Assessment and recommendation: Patient is a 89-year-old female with a history of atrial fibrillation and hypertension congestive heart failure. Currently an antibiotic. Continue the current treatment physical therapy rehabilitation Objective - Vital Signs/Intake and Output Vital Signs (last 24 hours): Temp Pulse Resp BP Pulse Ox 97.2 F L 94 H 20 136/77 95 08/11/17 15:45 08/11/17 15:45 08/11/17 15:45 08/11/17 15:45 08/11/17 15:45 Intake and Output: 08/11/17 08/12/17 18:59 06:59 Intake Total 400 Output Total 800 Balance -400 - Medications Medications: Current Medications Acetaminophen (Tylenol 325mg Tab) 650 mg PO Q4H PRN PRN Reason: Temperature Last Admin: 08/10/17 20:25 Dose: 650 mg Albuterol/Ipratropium (Duoneb 3 Mg/0.5 Mg (3 Ml) Ud) 3 ml INH RQ8 [facility] Last Admin: 08/11/17 15:27 Dose: 3 ml Alprazolam (Xanax) 0.25 mg PO HS [facility] Last Admin: 08/11/17 21:19 Dose: 0.25 mg Apixaban (Eliquis) 2.5 mg PO Q12 [facility] Last Admin: 08/11/17 21:19 Dose: 2.5 mg Diltiazem HCl (Cardizem Cd) 120 mg PO DAILY [facility] Last Admin: 08/11/17 10:11 Dose: 120 mg Lidocaine (Lidoderm) 1 ea TD DAILY [facility] Last Admin: 08/11/17 10:11 Dose: Not Given Metoprolol Succinate (Toprol Xl) 50 mg PO DAILY [facility] Last Admin: 08/11/17 10:11 Dose: 50 mg Pantoprazole Sodium (Protonix Ec Tab) 40 mg PO DAILY [facility] Last Admin: 08/11/17 10:11 Dose: 40 mg Rosuvastatin Calcium (Crestor) 10 mg PO HS [facility] Last Admin: 08/11/17 21:19 Dose: 10 mg Vitamin B Complex/Folic Acid (Berroca) 1 tab PO DAILY [facility] Last Admin: 08/11/17 10:11 Dose: 1 tab - Labs Labs: 08/08/17 07:48 08/08/17 07:48 PT 11.5 SECONDS (9.7-12.2) 07/31/17 23:08 INR 1.0 07/31/17 23:08 APTT 29 SECONDS (21-34) 07/31/17 23:08
--- NOTE | 2017-08-11 23:09 | CP.PCM.PN ---
Subjective - Date & Time of Evaluation Date of Evaluation: 08/11/17 Time of Evaluation: 23:08 - Subjective Subjective: this am pt was ok later she become very anxious and sob given lasix and some improvement episodic sob noted spoke to pt son will continue current treatment rehab Objective - Vital Signs/Intake and Output Vital Signs (last 24 hours): Temp Pulse Resp BP Pulse Ox 97.2 F L 94 H 20 136/77 95 08/11/17 15:45 08/11/17 15:45 08/11/17 15:45 08/11/17 15:45 08/11/17 15:45 Intake and Output: 08/11/17 08/12/17 18:59 06:59 Intake Total 400 Output Total 800 Balance -400 - Medications Medications: Current Medications Acetaminophen (Tylenol 325mg Tab) 650 mg PO Q4H PRN PRN Reason: Temperature Last Admin: 08/10/17 20:25 Dose: 650 mg Albuterol/Ipratropium (Duoneb 3 Mg/0.5 Mg (3 Ml) Ud) 3 ml INH RQ8 [facility] Last Admin: 08/11/17 15:27 Dose: 3 ml Alprazolam (Xanax) 0.25 mg PO HS [facility] Last Admin: 08/11/17 21:19 Dose: 0.25 mg Apixaban (Eliquis) 2.5 mg PO Q12 [facility] Last Admin: 08/11/17 21:19 Dose: 2.5 mg Diltiazem HCl (Cardizem Cd) 120 mg PO DAILY [facility] Last Admin: 08/11/17 10:11 Dose: 120 mg Lidocaine (Lidoderm) 1 ea TD DAILY [facility] Last Admin: 08/11/17 10:11 Dose: Not Given Metoprolol Succinate (Toprol Xl) 50 mg PO DAILY [facility] Last Admin: 08/11/17 10:11 Dose: 50 mg Pantoprazole Sodium (Protonix Ec Tab) 40 mg PO DAILY [facility] Last Admin: 08/11/17 10:11 Dose: 40 mg Rosuvastatin Calcium (Crestor) 10 mg PO HS [facility] Last Admin: 08/11/17 21:19 Dose: 10 mg Vitamin B Complex/Folic Acid (Berroca) 1 tab PO DAILY [facility] Last Admin: 08/11/17 10:11 Dose: 1 tab - Labs Labs: 08/08/17 07:48 08/08/17 07:48 PT 11.5 SECONDS (9.7-12.2) 07/31/17 23:08 INR 1.0 07/31/17 23:08 APTT 29 SECONDS (21-34) 07/31/17 23:08
[2017-08-12] MEDS: Albuterol-Ipratrop 3 mg / 0.5 (3 ml) UD INH SCH ×3 (00:55→15:35)
[2017-08-12] MEDS: diltiaZEM 120 mg/24 Hours CD Cap PO SCH (10:09)
[2017-08-12] MEDS: Metoprolol Succinate 50 mg XL Tab PO SCH (10:09)
[2017-08-12] MEDS: Pantoprazole 40 mg EC Tab PO SCH (10:09)
[2017-08-12] MEDS: Lidocaine 5% Patch TD SCH ×2 (10:12→12:28)
[2017-08-12 12:23] LABS: BASO % 0.1 % (0.0-2.0); EOS % 0.1 % (0.0-4.0); HEMOGLOBIN 11.7 g/dL (11.0-16.0); LYMPH # 1.1 K/uL (1.0-4.3); MEAN CELL VOLUME 91.6 fL (81.0-99.0); MEAN CORPUSCULAR HEMOGLOBIN 30.3 pg (27.0-31.0); MEAN CORPUSCULAR HGB CONC 33.1 g/dL (33.0-37.0); MEAN PLATELET VOLUME 9.1 fL (7.2-11.7); MONO # 1.2 K/uL (0.0-0.8); MONO % 10.4 % (0.0-10.0); NEUT # 9.1 K/uL (1.8-7.0); NEUT % 79.4 % (50.0-75.0); RBC 3.86 Mil/uL (3.80-5.20); RED CELL DISTRIBUTION WIDTH 14.9 % (11.5-14.5); WHITE BLOOD COUNT 11.5 K/uL (4.8-10.8)
[2017-08-12 12:40] LABS: BLOOD UREA NITROGEN 37 mg/dL (7-17); CALCIUM 9.3 mg/dl (8.6-10.4); GFR AFRICAN-AMERICAN > 60; GFR NON-AFRICAN AMERICAN > 60
[2017-08-12] MEDS ORDERED: Magnesium Hydroxide Susp 30 ml UD PO ONE (12:55)
[2017-08-12 16:00] VITALS: RESP 20
[2017-08-13] MEDS: Albuterol-Ipratrop 3 mg / 0.5 (3 ml) UD INH SCH ×2 (00:44→07:53)
[2017-08-13 01:10] VITALS: TEMP 97.8
[2017-08-13 08:13] VITALS: BP 122/89; PULSE 85; O2SAT 99
[2017-08-13] MEDS: Lidocaine 5% Patch TD SCH (10:18)
[2017-08-13] MEDS: diltiaZEM 120 mg/24 Hours CD Cap PO SCH (10:18)
[2017-08-13] MEDS: Pantoprazole 40 mg EC Tab PO SCH (10:18)
[2017-08-13] MEDS: Metoprolol Succinate 50 mg XL Tab PO SCH (10:18)
--- NOTE | 2017-08-13 13:44 | CP.PCM.PN ---
Subjective - Date & Time of Evaluation Date of Evaluation: 08/13/17 Time of Evaluation: 13:00 - Subjective Subjective: Patient seen today, denies any chest pain, palpitations, abdominal pain, N/V/D, sob improved a febrile No overnight events reported by RN Objective - Vital Signs/Intake and Output Vital Signs (last 24 hours): Temp Pulse Resp BP Pulse Ox 97.8 F 85 20 122/89 99 08/13/17 07:00 08/13/17 07:00 08/13/17 07:00 08/13/17 07:00 08/13/17 07:00 Intake and Output: 08/13/17 08/13/17 06:59 18:59 Intake Total 480 Output Total 1200 Balance -720 - Medications Medications: Current Medications Acetaminophen (Tylenol 325mg Tab) 650 mg PO Q4H PRN PRN Reason: Temperature Last Admin: 08/10/17 20:25 Dose: 650 mg Albuterol/Ipratropium (Duoneb 3 Mg/0.5 Mg (3 Ml) Ud) 3 ml INH RQ8 [facility] Last Admin: 08/13/17 07:53 Dose: 3 ml Alprazolam (Xanax) 0.25 mg PO HS [facility] Last Admin: 08/12/17 21:14 Dose: 0.25 mg Apixaban (Eliquis) 2.5 mg PO Q12 [facility] Last Admin: 08/13/17 10:19 Dose: 2.5 mg Diltiazem HCl (Cardizem Cd) 120 mg PO DAILY [facility] Last Admin: 08/13/17 10:18 Dose: 120 mg Lidocaine (Lidoderm) 1 ea TD DAILY [facility] Last Admin: 08/13/17 10:18 Dose: 1 ea Metoprolol Succinate (Toprol Xl) 50 mg PO DAILY [facility] Last Admin: 08/13/17 10:18 Dose: 50 mg Pantoprazole Sodium (Protonix Ec Tab) 40 mg PO DAILY [facility] Last Admin: 08/13/17 10:18 Dose: 40 mg Rosuvastatin Calcium (Crestor) 10 mg PO HS [facility] Last Admin: 08/12/17 21:14 Dose: 10 mg Vitamin B Complex/Folic Acid (Berroca) 1 tab PO DAILY [facility] Last Admin: 08/13/17 10:19 Dose: 1 tab - Labs Labs: 08/12/17 12:11 08/12/17 12:11 PT 11.5 SECONDS (9.7-12.2) 07/31/17 23:08 INR 1.0 07/31/17 23:08 APTT 29 SECONDS (21-34) 07/31/17 23:08 Assessment and Plan - Assessment and Plan (Free Text) Assessment: A/P 89 yr old female with pmhx COPD, atrial fib, CHF, HTN, pacemaker, osteoporosis , anxiety, Vertebral fracture,and recent GI bleed admitted with incr. sob, lathergy ,and dehydration Patient clinically improved Patient accepted at rehab at [facility] as per family request seen by Dr. De La Cruz today, stable for discharge to [facility] today under Dr. Fontanez service Discharge plan discussed with son Reji ,at bed side , who is in agreement with plan As per Shannon Diane aware patient needs to be admitted under Dr. Fontanez service
--- NOTE | 2017-08-15 07:58 | CP.PCM.PN ---
Subjective - Date & Time of Evaluation Date of Evaluation: 08/12/17 Time of Evaluation: 08:00 - Subjective Subjective: patient is a having episodes of cough. Shortness of breath also noted Patient's son is very upset Patient is mostly bedridden Patient started on oral anticoagulation, she is at high risk for GI bleed Patient recently had transfusion following GI bleed Vital signs reviewed Chest wheezing X-ray chest is showing basilar atelectasis On antibiotic, and steroid Patient with atrial fibrillation complicated with anticoagulation-induced GI bleed Currently closely monitored Patient is also in acute respiratory distress, COPD exacerbation needing bronchodilators, intravenous steroid, antibiotic GI prophylaxis patient needs subacute rehabilitation physical therapy Objective - Vital Signs/Intake and Output Vital Signs (last 24 hours): Temp Pulse Resp BP Pulse Ox 97.8 F 85 20 122/89 99 08/13/17 07:00 08/13/17 07:00 08/13/17 07:00 08/13/17 07:00 08/13/17 07:00 - Labs Labs: 08/12/17 12:11 08/12/17 12:11 PT 11.5 SECONDS (9.7-12.2) 07/31/17 23:08 INR 1.0 07/31/17 23:08 APTT 29 SECONDS (21-34) 07/31/17 23:08
--- NOTE | 2017-08-15 08:01 | CP.PCM.DIS ---
Provider - Provider Date of Admission: 08/02/17 08:06 Attending physician: LuzM aria De La Cruz MD Time Spent in preparation of Discharge (in minutes): 45 Hospital Course - Lab Results Lab Results: Most Recent Lab Values WBC 11.5 K/uL (4.8-10.8) H 08/12/17 12:11 RBC 3.86 Mil/uL (3.80-5.20) 08/12/17 12:11 Hgb 11.7 g/dL (11.0-16.0) 08/12/17 12:11 Hct 35.4 % (34.0-47.0) 08/12/17 12:11 MCV 91.6 fL (81.0-99.0) 08/12/17 12:11 MCH 30.3 pg (27.0-31.0) 08/12/17 12:11 MCHC 33.1 g/dL (33.0-37.0) 08/12/17 12:11 RDW 14.9 % (11.5-14.5) H 08/12/17 12:11 Plt Count 225 K/uL (130-400) 08/12/17 12:11 MPV 9.1 fL (7.2-11.7) 08/12/17 12:11 Neut % (Auto) 79.4 % (50.0-75.0) H 08/12/17 12:11 Lymph % (Auto) 10.0 % (20.0-40.0) L 08/12/17 12:11 [place] % (Auto) 10.4 % (0.0-10.0) H 08/12/17 12:11 Eos % (Auto) 0.1 % (0.0-4.0) 08/12/17 12:11 Baso % (Auto) 0.1 % (0.0-2.0) 08/12/17 12:11 Neut # (Auto) 9.1 K/uL (1.8-7.0) H 08/12/17 12:11 Lymph # (Auto) 1.1 K/uL (1.0-4.3) 08/12/17 12:11 [place] # (Auto) 1.2 K/uL (0.0-0.8) H 08/12/17 12:11 Eos # (Auto) 0.0 K/uL (0.0-0.7) 08/12/17 12:11 Baso # (Auto) 0.0 K/uL (0.0-0.2) 08/12/17 12:11 Neutrophils % (Manual) 94 % (50-75) H 08/08/17 07:48 Band Neutrophils % 3 % (0-2) H 08/08/17 07:48 Lymphocytes % (Manual) 2 % (20-40) L 08/08/17 07:48 Monocytes % (Manual) 1 % (0-10) 08/08/17 07:48 Platelet Estimate Normal (NORMAL) 08/08/17 07:48 Anisocytosis (manual) Slight 08/08/17 07:48 PT 11.5 SECONDS (9.7-12.2) 07/31/17 23:08 INR 1.0 07/31/17 23:08 APTT 29 SECONDS (21-34) 07/31/17 23:08 pO2 35 mm/Hg (30-55) 07/31/17 23:20 VBG pH 7.40 (7.32-7.43) 07/31/17 23:20 VBG pCO2 43 mmHg (40-60) 07/31/17 23:20 VBG HCO3 25.3 mmol/L 07/31/17 23:20 VBG Total CO2 27.9 mmol/L (22-28) 07/31/17 23:20 VBG O2 Sat (Calc) 73.9 % (40-65) H 07/31/17 23:20 VBG Base Excess 1.5 mmol/L (0.0-2.0) 07/31/17 23:20 VBG Potassium 4.3 mmol/L (3.6-5.2) 07/31/17 23:20 Sodium 137.0 mmol/l (132-148) 07/31/17 23:20 Chloride 102.0 mmol/L (98-107) 07/31/17 23:20 Glucose 108 mg/dl (65-105) H 07/31/17 23:20 Lactate 1.1 mmol/L (0.7-2.1) 07/31/17 23:20 Sodium 137 mmol/L (132-148) 08/12/17 12:11 Potassium 3.9 mmol/L (3.6-5.2) 08/12/17 12:11 Chloride 94 mmol/L (98-107) L 08/12/17 12:11 Carbon Dioxide 32 mmol/L (22-30) H 08/12/17 12:11 Anion Gap 14 (10-20) 08/12/17 12:11 BUN 37 mg/dL (7-17) H 08/12/17 12:11 Creatinine 0.8 mg/dL (0.7-1.2) 08/12/17 12:11 Est GFR ( Amer) > 60 08/12/17 12:11 Est GFR (Non-Af Amer) > 60 08/12/17 12:11 Random Glucose 95 mg/dL (65-105) 08/12/17 12:11 Calcium 9.3 mg/dl (8.6-10.4) 08/12/17 12:11 Magnesium 2.1 mg/dL (1.6-2.3) 08/08/17 07:48 Total Bilirubin 0.8 mg/dL (0.2-1.3) 08/08/17 07:48 AST 29 U/L (14-36) 08/08/17 07:48 ALT 16 U/L (9-52) 08/08/17 07:48 Alkaline Phosphatase 148 U/L (38-126) H 08/08/17 07:48 Troponin I 0.0130 ng/mL (0.00-0.120) 07/31/17 23:08 NT-Pro-B Natriuret Pep 1050 pg/mL (0-900) H 07/31/17 23:08 Total Protein 6.9 g/dL (6.3-8.3) 08/08/17 07:48 Albumin 3.4 g/dL (3.5-5.0) L 08/08/17 07:48 Globulin 3.5 gm/dL (2.2-3.9) 08/08/17 07:48 Albumin/Globulin Ratio 0.9 (1.0-2.1) L 08/08/17 07:48 Lipase 53 U/L (23-300) 07/31/17 23:08 TSH 3rd Generation 1.67 mIU/L (0.46-4.68) 07/31/17 23:34 Venous Blood Potassium 4.3 mmol/L (3.6-5.2) 07/31/17 23:20 Urine Color Akanksha (YELLOW) 07/31/17 23: Urine Clarity Hazy (Clear) 07/31/17 23: Urine pH 5.0 (5.0-8.0) 07/31/17 23:19 Ur Specific [place] 1.024 (1.003-1.030) 07/31/17 23: Urine Protein Negative mg/dL (NEGATIVE) 07/31/17: Urine Glucose (UA) Normal mg/dL (Normal) 07/31/17 23: Urine Ketones Negative mg/dL (NEGATIVE) 07/31/17 23: Urine Blood Negative (NEGATIVE) 07/31/17: Urine Nitrate Negative (NEGATIVE) 07/31/17: Urine Bilirubin Negative (NEGATIVE) 07/31/17: Urine Urobilinogen 4.0 mg/dL (0.2-1.0) H 07/31/17: Ur Leukocyte Esterase Neg [place]/uL (Negative) 07/31/17: Urine WBC (Auto) 4 /hpf (0-5) 07/31/17: Urine RBC (Auto) 1 /hpf (0-3) 07/31/17: Ur Squamous Epith Cells 5 /hpf (0-5) 07/31/17:19 - Hospital Course Hospital Course: History of Present Illness: Chief complaint: patient was sent from assisted with agonal breathing. History present illness: 88-year-old female with history of atrial fibrillation, congestive heart failure , hypertension, pacemaker Recently hospitalized, but the acute to subacute vertebral fracture, complicated with pain. During the stay patient developed acute GI bleed, and the Coumadin was discontinued. Patient underwent upper endoscopy, no evidence of acute bleed, and the patient received a blood transfusion. After a few days the patient stabilized, was sent to rehabilitation. In the rehabilitation patient was not improving well, increasing weakness, increasing lethargy, poor intake noted. Patient's family called me, and I examined the patient the day, that night patient was having increasing shortness of breath, increasing lethargic, patient was not responding completely well to my commands. And also noted to have increasing respiratory distress, I did well, breathing, so I suggested that patient needs to go to the emergency room for the Further management. PMH: COPD, atrial fib, CHF, HTN, pacemaker, osteoporosis, anxiety, Vertebral fracture , GI bleed allergy: NKDA FH: son: anxiety and hypercholesterolemia father and mother natural cause Surgery: Appendectomy, Pacemaker PH: Smoking:Quit greater than 40 years ago ago. 2ppd Alcohol: Alcohol Status: Nondrinker. Caffeine intake:Admits to taking caffeinated beverages. Review of systems: Patient now, mostly sleepy, lethargic. Responding to verbal commands slightly. Patient denies any chest pain. Shortness of breath noted. Using oxygen. Leg swelling, leg weakness noted. On examination: HEENT PERRLA, neck supple No thyromegaly was noted and no cervical adenopathy noted Chest bilateral good air entry, no wheezing or rales noted CVS regular heart sound, no murmur Abdomen soft and no organomegaly Extremities pedal edema noted bilateral pedal pulses are good. . TAKE OUT WAITER, patient is drowsy, sleepy, responding very poorly. Able to move with the stimulus both lower extremities. tenderness over the lower lumbar region noted able to move the lower extremities but weak Repeat labs in the emergency room reviewed. Chest x-ray reviewed. Vital signs stable. Assessment/Plan: 89-year-old female with history of congestive heart failure, systolic in nature , stable at this time, on medications as well as home oxygen. Atrial fibrillation on medications. Anticoagulation. Being evaluated by repair operator. Hypercholesterolemia, COPD, hypertension, pacemaker. admitted with acute vertibral compression fracture with weakness Patient was recently hospitalized with acute vertebral fracture, and acute GI bleed, status post blood transfusion. Patient now off anticoagulation. Now admitted with altered mental status, most likely related to Medications induced. Renal insufficiency. Are dehydration possible. Will reduce, discontinue benzodiazepines. Will closely monitor. patient's benzodiazepines discontinued Course in the Hospital: Over the course of 2 days patient started waking up patient started feeling slightly bettBut next few days patient Patient started feeling better Next few days patient started increasingly experiencing shortness of breath. X-rays showing evidence of possible basilar atelectasis And cough noted, low-grade fever. Assessment condition gets worse of diagnosis of COPD exacerbation was made, patient started an antibiotic, bronchodilators, and intravenous corticosteroid. Patient slowly improved. Still mostly bedridden Patient also started on oral anticoagulation low dose eliquis 2.5 mg twice a day. I discussed this with the patient's family. She is likely stable. She will be discharged to rehabilitation. In the rehabilitation will continue to monitor. I spoke to him. Family about. Will follow-up the patient Discharge Plan - Follow Up Plan Condition: FAIR [facility] Instructions: Atrial Fibrillation (DC), Heart Failure, Adult (DC), Fatigue (DC) , Pacemakers Additional Instructions: PLEASE ADMIT PATIENT UNDER DR. JONES SERVICE- CALL DR. JONES UPON PATIENT ARRIVAL TO THE FACILITY CONTINUE MEDICATION PER MED. REC. PLEASE DO CBC, BMP Q WEEKLY PT/OT TOLERATED PLEASE KEEP 02 VIA NASAL CANULA PRN TO KEEP SPO2 >95 %
== END 2017-08-13 15:16 | DRG 190 ==
LOC: C.ER 21:42 → C.9E 23:47 → C.5S 08-01 11:59 → OBSVTOIN 08-02 08:06 → C.6T 08-08 12:55
PROVIDERS: ADMIT Internal Medicine; ATTEND Internal Medicine
DX: J44.0 Chronic obstructive pulmonary disease with (acute) lower respiratory infection (principal); G93.41 Metabolic encephalopathy; I50.22 Chronic systolic (congestive) heart failure; J20.9 Acute bronchitis, unspecified; M54.5 Low back pain; J44.1 Chronic obstructive pulmonary disease with (acute) exacerbation; R06.03 Acute respiratory distress; E86.0 Dehydration; N28.9 Disorder of kidney and ureter, unspecified; I11.0 Hypertensive heart disease with heart failure; I48.91 Unspecified atrial fibrillation; T42.4X5A Adverse effect of benzodiazepines, initial encounter; R26.2 Difficulty in walking, not elsewhere classified; M80.08XD Age-related osteoporosis with current pathological fracture, vertebra(e), subsequent encounter for fracture with routine healing; F41.0 Panic disorder [episodic paroxysmal anxiety]; F41.8 Other specified anxiety disorders; R13.10 Dysphagia, unspecified; E78.00 Pure hypercholesterolemia, unspecified; Z79.01 Long term (current) use of anticoagulants; Z95.0 Presence of cardiac pacemaker; Z87.891 Personal history of nicotine dependence; Z90.49 Acquired absence of other specified parts of digestive tract; Z74.01 Bed confinement status; Z98.49 Cataract extraction status, unspecified eye; Z91.81 History of falling